=== PATIENT | female | born 1975 | race Caucasian/White ===

== ENCOUNTER 2018-04-02 15:10 | Outpatient (CLI) | payer BC, SELFPAY ==
--- NOTE | 2018-04-02 14:39 | DI.RAD_ITS ---
SYMPTOMS/DIAGNOSIS: RIGHT KNEE PAIN, M25.569 RIGHT KNEE: No bony or joint abnormality is seen.
== END 2018-04-02 15:30 ==
PROVIDERS: PCP Family Medicine; Visit Provider Nurse Practitioner Family
DX: M25.561 Pain in right knee (principal)
CPT/HCPCS: 73562

== ENCOUNTER 2018-05-10 10:10 | Outpatient (REF) | payer SELFPAY ==
--- NOTE | 2018-05-10 08:30 | PAPFT_PTH ---
PATIENT: Dede Morse LOC: [facility] U#:[id number] AGE/SX: 43/F ROOM: RE05/10/[address]: Lauren Donato : 1975 BED: DIS: 05/10/2018 SPEC #: [id number] RECD: 05/10/18 12:40 STATUS: MIKAEL REQ #: [id number] DEBORAH: 05/10/18 08:[address]: Lauren Donato DEPT: [facility] Cytology RECD BY: Josephine Kingston Tissues: 1 - CX/ENDOCX FOR PAP SMEARS Procedures: PAP THIN PREP/[facility] Screening HPV DNA PROBE Comments: [id number]
[2018-05-10 14:53] LABS: TSH (W/Ref FT4) 0.69 uIU/mL (0.358-3.74)
== END 2018-05-10 10:30 ==
LOC: NCHCN 10:10
PROVIDERS: PCP Family Medicine; Visit Provider Family Medicine
DX: E03.9 Hypothyroidism, unspecified (principal); Z00.00 Encounter for general adult medical examination without abnormal findings; Z12.4 Encounter for screening for malignant neoplasm of cervix; Z11.51 Encounter for screening for human papillomavirus (HPV)
CPT/HCPCS: 88142; 84443; 87624

== ENCOUNTER 2018-09-13 12:18 | Outpatient (REF) | payer BC, SELFPAY ==
[2018-09-13 18:25] LABS: Anion Gap 8.1 mmol/L (3-11); BUN 16 mg/dL (7-18); CO2 30.9 mmol/L (21.0-32.0); CREATININE 0.72 mg/dL (0.55-1.02); Calcium 9.1 mg/dL (8.5-10.1); Chloride 103 mmol/L (98-107); Glucose 134 mg/dL (70-100); Potassium 4.3 mmol/L (3.5-5.1); Sodium 142 mmol/L (136-145); TSH (W/Ref FT4) 0.53 uIU/mL (0.358-3.74)
[2018-09-13 18:39] LABS: COMMENT (LAB VIEW ONLY) 71.84 mg/dL; Microalb ug/mg Crea 128.1 ug/mg Cr
== END 2018-09-13 12:38 ==
LOC: NCHCN 12:18
PROVIDERS: PCP Family Medicine; Visit Provider Family Medicine
DX: E11.9 Type 2 diabetes mellitus without complications (principal); I10 Essential (primary) hypertension; E03.9 Hypothyroidism, unspecified
CPT/HCPCS: 80048; 82043; 82570; 84443

== ENCOUNTER 2018-11-01 00:38 | Outpatient (CLI) | payer BC, SELFPAY ==
--- NOTE | 2018-11-01 09:33 | DI.MRI_ITS ---
SYMPTOM/DIAGNOSIS: RT KNEE PAIN, RT INTERNAL DERANGEMENT RIGHT KNEE MRI: MR examination of the knee was performed according to the usual protocol. No significant bony signal abnormality is seen. Grade II chondromalacia patellae noted. No other abnormality of the extensor mechanism. Cruciate ligaments appear intact. Lateral meniscus is unremarkable. There is an inferior surfacing nondisplaced tear of the posterior horn of the medial meniscus. Articular cartilage of the joints of the knee grossly intact except for the aforementioned patellar cartilage changes. CONCLUSION: Medial meniscal tear, nondisplaced. Grade II chondromalacia patellae.
== END 2018-11-01 00:58 ==
PROVIDERS: PCP Family Medicine; Visit Provider Student in an Organized Health Care Education/Training Program
DX: M25.561 Pain in right knee (principal); M23.91 Unspecified internal derangement of right knee; S83.241A Other tear of medial meniscus, current injury, right knee, initial encounter; M22.41 Chondromalacia patellae, right knee
CPT/HCPCS: 73721

== ENCOUNTER 2019-07-11 09:52 | Outpatient (REF) | payer BC, SELFPAY ==
[2019-07-11 12:39] LABS: Abs Immature Grans 0.02 k/cumm (0.0-0.09); Absolute Basophil Count 0.05 k/cumm (0.0-0.2); Absolute Eosinophil Count 0.11 k/cumm (0.0-0.7); Absolute Lymphocyte Count 1.33 k/cumm (1.2-3.4); Absolute Monocyte Count 0.36 k/cumm (0.11-0.7); Absolute Neutrophil Count 4.08 k/cumm (1.2-6.7); Basophils % 0.8; Eosinophils % 1.8; HCT 43.1 % (36.0-46.0); HGB 14.4 g/dL (12.0-15.5); Immature Grans % 0.3; Lymphocytes % 22.4; Mean Corp. HGB Concentration 33.4 g/dL (32.0-36.0); Mean Corpuscular Hemoglobin 29.8 pg (27.0-33.0); Mean Platelet Volume 11.8 fL (8.0-11.0); Monocytes % 6.1; Neutrophils % 68.6; Platelet Count 243 x1000/uL (130-400); RBC 4.84 m/cumm (4.00-5.20); RBC Distribution Width 12.9 % (11.7-14.6); White Blood Cell Count 5.95 k/cumm (4.4-10.8)
[2019-07-11 12:56] LABS: Anion Gap 10.3 mmol/L (3-11); BUN 14 mg/dL (7-18); CO2 26.7 mmol/L (21.0-32.0); CREATININE 0.63 mg/dL (0.55-1.02); Calcium 9.2 mg/dL (8.5-10.1); Chloride 104 mmol/L (98-107); Glucose 172 mg/dL (74-106); Potassium 4.6 mmol/L (3.5-5.1); Sodium 141 mmol/L (136-145); TSH (W/Ref FT4) 0.71 uIU/mL (0.36-3.74)
[2019-07-14 09:57] LABS: Cyclic Citrullinated Peptide <2.5 U/mL (<5.0)
[2019-07-14 12:04] LABS: ANA Interpretation Positive (Negative); ANA Titer Pattern 1:320 Homogeneous
== END 2019-07-11 10:12 ==
LOC: NCHCN 09:52
PROVIDERS: PCP Family Medicine; Visit Provider Family Medicine
DX: R53.83 Other fatigue (principal); E11.9 Type 2 diabetes mellitus without complications; E03.9 Hypothyroidism, unspecified; M25.50 Pain in unspecified joint
CPT/HCPCS: 80048; 85652; 86200; 84443; 85025; 86038

== ENCOUNTER 2019-09-17 12:57 | Outpatient (REF) | payer BC, SELFPAY ==
[2019-09-17 20:39] LABS: HCT 41.8 % (36.0-46.0); Mean Corp. HGB Concentration 33.5 g/dL (32.0-36.0); Mean Corpuscular Volume 89.7 fL (80-95); Mean Platelet Volume 11.7 fL (8.0-11.0); Platelet Count 301 x1000/uL (130-400); RBC 4.66 m/cumm (4.00-5.20); RBC Distribution Width 13.2 % (11.7-14.6); White Blood Cell Count 7.31 k/cumm (4.4-10.8)
[2019-09-17 21:18] LABS: ESR 9 mm/hr (0-20)
== END 2019-09-17 13:17 ==
LOC: NCHCN 12:57
PROVIDERS: PCP Family Medicine; Visit Provider Nurse Practitioner Family
DX: R19.7 Diarrhea, unspecified (principal)
CPT/HCPCS: 80048; 85027; 85652

== ENCOUNTER 2019-12-09 11:36 | Outpatient (CLI) | payer BC, SELFPAY ==
--- NOTE | 2019-12-09 12:00 | DI.RAD_ITS ---
EXAM: XR HIP LT COMPLETE AP PELVIS INDICATION: PAIN IN LT THIGH. TECHNIQUE: 2D digital imaging was performed. FINDINGS: No fracture or dislocation is seen. The joint spaces are well maintained. No joint space calcifica tions are seen. There is minimal spurring at the greater trochanters. IMPRESSION: Minimal degenerative changes. No acute abnormality. DATA REPOSITORY: RADIATION DOSE DELIVERED:
== END 2019-12-09 11:56 ==
PROVIDERS: PCP Family Medicine; Visit Provider Nurse Practitioner Family
DX: M79.652 Pain in left thigh (principal)
CPT/HCPCS: 73502

== ENCOUNTER 2019-12-26 13:36 | Outpatient (REF) | payer BC, SELFPAY ==
[2019-12-26 17:08] LABS: COMMENT (LAB VIEW ONLY) 28.85 mg/dL; Microalb ug/mg Crea 98.4 ug/mg Cr
== END 2019-12-26 13:56 ==
LOC: NCHCN 13:36
PROVIDERS: PCP Family Medicine; Visit Provider Family Medicine
DX: E11.9 Type 2 diabetes mellitus without complications (principal)
CPT/HCPCS: 82043; 82570

== ENCOUNTER 2020-02-10 08:48 | Outpatient (CLI) | payer BC, SELFPAY ==
--- NOTE | 2020-02-10 | DI.US_ITS ---
EXAM: US AXILLA LT CLINICAL HISTORY: LUMP LT ARM PIT, R22.30 TECHNIQUE: Ultrasound left axilla performed using standard protocol. COMPARISON: No exams were available for comparison FINDINGS: There is a lymph node measuring 2.5 x 1.1 by 1.4 cm in the left axilla. The fatty hilum is maintaine d. There is a thin rim of hypoechoic cortex. Are no malignant features however malignancy cannot be excluded. No additional findings are seen. IMPRESSION: 2.5 centimeter left axillary lymph node without suspicious features. DATA REPOSITORY:
== END 2020-02-10 09:08 ==
PROVIDERS: PCP Family Medicine; Visit Provider Nurse Practitioner Family
DX: R22.30 Localized swelling, mass and lump, unspecified upper limb (principal); R59.0 Localized enlarged lymph nodes
CPT/HCPCS: 76642

== ENCOUNTER 2020-02-27 13:58 | Outpatient (CLI) | payer BC, SELFPAY ==
--- NOTE | 2020-02-27 13:01 | DI.US_ITS ---
EXAM: US AXILLA LT CLINICAL HISTORY: LOCALIZED SWELLING UNDER ARM,R22.30 TECHNIQUE: Ultrasound left axilla performed using standard protocol. COMPARISON: US US AXILLA LT from 02/10/2020 FINDINGS: There is a 2.8 x 1.1 x 2.4 cm ovoid hypoechoic lesion in the left axilla. Sonographically, it is con sistent with a lymph node. No suspicious cystic or solid masses are seen in the left axilla. IMPRESSION: No sonographically suspicious finding. DATA REPOSITORY:
== END 2020-02-27 14:18 ==
PROVIDERS: PCP Family Medicine; Visit Provider Nurse Practitioner Family
DX: R22.32 Localized swelling, mass and lump, left upper limb (principal)
CPT/HCPCS: 76642

== ENCOUNTER 2020-04-01 19:18 | Outpatient (REF) | payer BC, SELFPAY ==
[2020-04-01 19:25] LABS: Anion Gap 11.8 mmol/L (3-11); BUN 9 mg/dL (7-18); CO2 25.2 mmol/L (21.0-32.0); CREATININE 0.78 mg/dL (0.55-1.02); Calcium 8.8 mg/dL (8.5-10.1); Chloride 103 mmol/L (98-107); Glucose 128 mg/dL (74-106); Potassium 3.7 mmol/L (3.5-5.1); Sodium 140 mmol/L (136-145)
[2020-04-01 19:32] LABS: Abs Immature Grans 0.02 10^3/uL (0.0-0.06); Absolute Basophil Count 0.08 10^3/uL (0.0-0.2); Absolute Lymphocyte Count 1.64 10^3/uL (1.2-3.4); Absolute Monocyte Count 0.62 10^3/uL (0.1-0.8); Absolute Neutrophil Count 5.28 10^3/uL (1.2-6.7); Eosinophils % 3.8; HCT 41.4 % (36.0-46.0); HGB 13.8 g/dL (11.2-15.7); Immature Grans % 0.3; Lymphocytes % 20.7; MCH 29.9 pg (27.0-33.0); MCHC 33.3 % (32.0-36.0); MCV 89.8 fL (80-95); MPV 12.6 fL (8.0-11.0); Monocytes % 7.8; Neutrophils % 66.4; Nucleated RBC 0 %; Platelet Count 245 10^3/uL (130-400); RBC 4.61 10^6/uL (3.93-5.22); RDW 13.2 % (11.7-14.6); RDW-SD 42.8 fL; WBC 7.94 10^3/uL (4.4-10.8)
[2020-04-04 22:35] LABS: Patient Race White; SARS-CoV-2 RNA Undetected (Undetected); SARS-CoV-2 Specimen Source Nasal
[2020-04-07 15:05] LABS: IgA 326 mg/dL (85-499); Interpretation (See Note); Tissue Transglutaminase IgA <1.2 U/mL (<4.0)
== END 2020-04-01 19:38 ==
LOC: NCHCN 19:18
PROVIDERS: PCP Family Medicine; Visit Provider Nurse Practitioner Family
DX: R19.7 Diarrhea, unspecified (principal); Z11.59 Encounter for screening for other viral diseases
CPT/HCPCS: 80048; 82784; 83516; U0003; 85025

== ENCOUNTER 2020-04-09 03:59 | Outpatient (CLI) | payer BC, SELFPAY ==
--- NOTE | 2020-04-09 07:30 | DI.US_ITS ---
EXAM: US PELVIS TRANSVAGINAL CLINICAL HISTORY: menorrhagia, abdominal bloating, pelvic pain,R14.0,R10.2,N92.0. TECHNIQUE: Transabdominal and transvaginal pelvic ultrasound was performed using standard protocol. COMPARISON: No exams were available for comparison FINDINGS: KIDNEYS: Kidneys are symmetric in size. No evidence of renal calculi. No evidence of hydronephrosis. No renal mass or cyst identified. UTERUS: Position: Anteverted. Size: 9.5 long by 3.6 AP by 5.1 transverse cm Endometrium: 0.3 cm. Normal for patient's menstrual status. Myometrium: Unremarkable. Cervix: Unremarkable. OVARIES: Right: 3.8 x 2.3 x 1.8 cm Cyst or mass: Follicular cysts. The largest measures 3 cm. Left: 2.7 x 2.1 x 1.4 cm Cyst or mass: Echogenic shadowing focus measuring 0.6 x 0.4 cm in the left ovary. This may represent a dermoid. Follow-up as clinically appropriate. DOPPLER: Color: Symmetric and uniform flow to both ovaries. No hyperemia. CUL-DE-SAC: Free fluid: None. Other: None. IMPRESSION: 1. Normal sonographic appearance of the kidneys. 2. Normal-appearing uterus with endometrial stripe within normal limits. 3. 0.6 x 0.4 cm echogenic focus in the left ovary. This may represent a lesion such as a dermoid. F ollow-up as clinically appropriate. DATA REPOSITORY:
== END 2020-04-09 04:19 ==
PROVIDERS: PCP Family Medicine; Visit Provider Obstetrics & Gynecology Gynecology
DX: N92.0 Excessive and frequent menstruation with regular cycle (principal); R14.0 Abdominal distension (gaseous); R10.2 Pelvic and perineal pain
CPT/HCPCS: 76830; 76856

== ENCOUNTER 2020-06-18 03:37 | Outpatient (CLI) | payer BC, SELFPAY ==
--- NOTE | 2020-06-18 08:00 | DI.US_ITS ---
EXAM: US PELVIS TRANSVAGINAL CLINICAL HISTORY: f/u cyst on L ovary,PELVIC PAIN,R10.2,N83.209 TECHNIQUE: Transabdominal and transvaginal imaging was performed using standard protocol. COMPARISON: CT ABD PELVIS WITH CONTRAST from 11/12/2014 US US PELVIS TRANSVAGINAL from 04/09/2020 FINDINGS: KIDNEYS: Kidneys are symmetric in size. No evidence of renal calculi. No evidence of hydronephrosis. No renal mass or cyst identified. UTERUS: Retroverted 8.1 x 4.4 x 5.1 cm. Endometrium: 9 millimeters Myometrium: Unremarkable. Cervix: Unremarkable. OVARIES: Right: Cyst or mass: Small follicle Left: Cyst or mass: 3.1 x 2.4 x 0.9 centimeter cystic area with mild internal echoes. 4.4 x 2.7 x 2.8 centimeter complex cyst with internal echoes. This appears new when compared with the previous exam. The previously noted calcification in or adjacent to the left ovary is not visualized on today's exa m. It is visible on previous CT from 2014 and is likely benign. DOPPLER: Color: Symmetric and uniform flow to both ovaries. No hyperemia. Duplex: Normal ovarian arterial waveforms visualized. CUL-DE-SAC: Free fluid: Trace IMPRESSION: 1. Normal-appearing uterus with endometrial stripe within normal limits. 2. Resolution of previously noted right ovarian cyst. There is a new 4.4 centimeter complex cyst with internal echoes as well as new or increased in size adjacent cyst. DATA REPOSITORY:
== END 2020-06-18 03:57 ==
PROVIDERS: PCP Family Medicine; Visit Provider Obstetrics & Gynecology Gynecology
DX: N83.292 Other ovarian cyst, left side (principal); R10.2 Pelvic and perineal pain
CPT/HCPCS: 76830; 76856

== ENCOUNTER 2020-09-10 11:23 | Outpatient (REF) | payer BC, SELFPAY ==
[2020-09-10 15:10] LABS: HCT 43.8 % (36.0-46.0); HGB 14.3 g/dL (11.2-15.7); MCH 30.2 pg (27.0-33.0); MCHC 32.6 % (32.0-36.0); MCV 92.4 fL (80-95); Platelet Count 252 10^3/uL (130-400); RBC 4.74 10^6/uL (3.93-5.22); RDW 12.8 % (11.7-14.6); WBC 6.66 10^3/uL (4.4-10.8)
[2020-09-10 15:35] LABS: ALT 23 U/L (14-59); AST 12 U/L (15-37); Alkaline Phosphatase 51 U/L (46-116); BUN 17 mg/dL (7-18); Bilirubin, Total 0.3 mg/dL (0.2-1.0); CREATININE 0.7 mg/dL (0.55-1.02); Calcium 9.1 mg/dL (8.5-10.1); Calculated LDL 93 mg/dL (<100); Chloride 103 mmol/L (98-107); Cholesterol 164 mg/dL (<200); Glucose 178 mg/dL (74-106); HDL Cholesterol 63 mg/dL (40-60); Potassium 3.9 mmol/L (3.5-5.1); Sodium 137 mmol/L (136-145); TSH (W/Ref FT4) 0.76 uIU/mL (0.36-3.74); Total Protein 7.4 g/dL (6.4-8.2); Triglyceride 44 mg/dL (<150)
== END 2020-09-10 11:24 | disposition home or self-care (01) ==
LOC: NCHCN 11:23
PROVIDERS: PCP Family Medicine; Visit Provider Family Medicine
DX: E11.9 Type 2 diabetes mellitus without complications (principal); I10 Essential (primary) hypertension; E03.9 Hypothyroidism, unspecified
CPT/HCPCS: 80053; 80061; 85027; 84443

== ENCOUNTER 2021-01-03 11:18 | Outpatient (REF) | payer BC, SELFPAY | END 2021-01-03 11:19 | disposition home or self-care (01) | LOC: NCHCN 11:18 | PROVIDERS: PCP Family Medicine; Visit Provider Family Medicine | DX: E11.9 Type 2 diabetes mellitus without complications (principal) | CPT/HCPCS: 82043; 82570 ==

== ENCOUNTER 2022-06-01 09:04 | Day surgery (SDC) | payer BC, SELFPAY ==
--- NOTE | 2022-05-31 16:07 | PDOC.DSDIS_ITS ---
Date of service: 06/01/22 Time of Service: 11:56 Discharge Plan Disposition Patient Disposition: HOME Condition: Good Condition: Good Discharge Details Attending Provider: Jose Romero Primary Care Provider: Lauren Donato Home Meds and New Rx's Prescriptions: Continued atorvastatin [Lipitor] 10 MG tablet 10 mg PO DAILY glipizide 10 MG tablet extended release 24hr 10 mg PO DAILY lisinopril 5 MG tablet 5 mg PO DAILY levothyroxine [Synthroid] 50 mcg tablet 50 mcg PO DAILY ibuprofen 800 mg tablet 800 mg PO TID PRN meclizine 25 mg tablet 25 mg PO DAILY PRN metformin 1,000 mg tablet extended release 24hr 1,000 mg PO BID albuterol sulfate [ProAir HFA] 8.5 GM HFA aerosol inhaler 2 puff Inhalation PRN PRN Label Comments: 03/27/16 2 puffs by mouth prior ro exercise as needed. [facility] [place] Discontinued bisacodyl [Dulcolax (bisacodyl)] 5 mg tablet,delayed release (DR/EC) 5 mg PO ONCE Qty: 4 0RF Rx Instructions: Take according to provider's instructions for colonoscopy prep. polyethylene glycol 3350 17 gram/dose powder 17 g PO ONCE Qty: 238 0RF Rx Instructions: To be taken as directed by prescriber's office for colonoscopy prep. No Action rizatriptan 10 mg tablet 1 tab PO DAILY Label Comments: TAKE 1 TABLET BY MOUTH AT FIRST ONSET OF HEADACHE MAY REPEAT IN 2 HOURS DO NOT EXCEED 2 TABLETS IN 24 HOURS omeprazole 40 mg capsule,delayed release(DR/EC) 1 cap PO DAILY Label Comments: TAKE ONE CAPSULE BY MOUTH EVERY DAY Discharge Instructions Additional Instructions: 1. If tolerated, consume a soft, low fiber diet for 1-2 days. 2[address] Do not drive, drink alcohol, operate machinery, make critical decisions, or do activities that require coordination or balance for 24 hours. 3. Because air was put into your colon during the procedure, expelling air from your rectum (passing gas or farting) is normal. 4. You may not have a bowel movement for 1-3 days because of the colonoscopy prep. This is normal. 5. Go directly to the emergency room if you notice any of the following: Develop chills (warm to touch), or if you have a thermometer and your temperature is above 101 Difficulty breathing or difficultly swallowing Persistent vomiting Severe abdominal pain, other than gas cramps Severe chest pain Black, tarry stools Any bleeding ? exceeding one tablespoon 6. Call your physician if the site where your intravenous was started becomes red, swollen, painful, and warm to touch. 7. Your physician has reviewed your pre-procedure medications. Please continue to take those medications as previously ordered. You will be given specific information/education regarding any changes to your medications before leaving. Activity:: Activity as Tolerated Diet:: As Tolerated DS: Diagnosis Discharge Diagnosis (1) Screening for colon cancer: Status: Acute Asessment and Plan: Normal colonoscopy, follow-up for your next 1 in 10 years.
--- NOTE | 2022-05-31 16:09 | W.COLOREPORT ---
Date of service: 06/01/22 Time of Service: 11:57 Colonoscopy Report Date of procedure: 06/01/22 Pre-op diagnosis general: Screening colonoscopy for routine health maintenance Post-op diagnosis procedure note: same Procedure: Screening colonoscopy Surgeon: Jose Romero Anesthesia Type: General:No Airway Estimated blood loss (mL): 0 Pathology: none sent Complications: None Disposition: same day Indications: Dede is a 47-year-old woman here for her first screening colonoscopy. Prep: Miralax/Dulcolax Procedure Start Time: 11:27 Procedure End Time: 11:50 Retraction Time: 18 Findings: Normal colonoscopy Procedure Description: After the induction of monitored anesthetic care, and with the patient in left lateral decubitus position, I began by performing an external anorectal exam.? Perineum and skin were normal, as was the anal verge.? There was no not evidence of external hemorrhoids.? Next, I performed a digital rectal exam.? I did appreciate any abnormal findings.? Next, I advanced a colonoscope into the rectal vault.? I performed retroflexion.? Using insufflation, I then advanced the colonoscope beyond the rectal folds and into the sigmoid colon before advancing towards the cecum.? The quality of the prep was adequate.? The scope was noted to be in the cecum by identification of the ileocecal valve and appendiceal orifice.? I then began withdrawing the colonoscope using repeated irrigation as necessary for full evaluation of the colonic mucosa. ?Once the scope was withdrawn to the level of the rectum, great care was taken to examine portions of the rectal folds.? Finally, the scope was withdrawn and the patient was brought to the same-day surgery recovery unit as the anesthetic wore off. ?The findings and instructions were shared with the patient prior to discharge.
[2022-06-01 10:00] VITALS: BP 131/84; PULSE 58; RESP 16; TEMP 35.9; O2SAT 98
[2022-06-01] MEDS: Lactated Ringers 1,000 ML 80 ML IV (10:20)
--- NOTE | 2022-06-01 10:29 | W.ANESPRE ---
General Info Date of Service Date Performed: 06/01/22 Height: 5 ft 3 in Weight: 70.2 kg Body Mass Index (BMI): 27.3 Surgical Procedure: Operation Date: 06/01/22 10:35 Proposed Procedure Side Surgeon félix Romero MD Meds Allergies and Home Medications Allergies Allergy/AdvReac Type Severity Reaction Status Date / Time No Known Allergies Allergy Unverified 06/01/22 09:56 Home Medication Medication Instructions Recorded atorvastatin 10 mg tablet (Lipitor) 10 mg PO DAILY 04/03/14 glipizide 10 mg tablet, extended 10 mg PO DAILY 04/03/14 release 24 hr lisinopril 5 mg tablet 5 mg PO DAILY 04/03/14 albuterol sulfate 90 mcg/actuation 2 puff inhalation PRN PRN 03/27/16 aerosol inhaler (ProAir HFA) levothyroxine 50 mcg tablet 50 mcg PO DAILY 01/01/20 (Synthroid) ibuprofen 800 mg tablet 800 mg PO TID PRN 02/10/20 meclizine 25 mg tablet 25 mg PO DAILY PRN 05/11/22 metformin 1,000 mg tablet,extended 1,000 mg PO BID 05/11/22 release 24hr omeprazole 40 mg capsule,delayed 1 cap PO DAILY 06/01/22 release rizatriptan 10 mg tablet 1 tab PO DAILY 06/01/22 Current Visit Medications: Current Medications Generic Name Dose Route Start Last Admin Trade Name Freq PRN Reason Stop Dose Admin Hyoscyamine Sulfate 0.125 mg 06/01/22 09:04 Hyoscyamine 0.125 Mg Sl/Oral/Chew SL DIRECTED PRN Ringer's Solution 1,000 mls @ 80 mls/hr 06/01/22 06:00 06/01/22 10:20 IV 06/30/22 23:59 80 mls/hr INFUSION LEXIS Administration IV Miscellaneous Supplies 1 each 06/01/22 06:00 Iv Access IV 06/30/22 23:59 DIRECTED LEXIS Ondansetron HCl 4 mg 06/01/22 09:04 Ondansetron 4 Mg/2 Ml Vial IVP Q4H PRN PRN Nausea / Vomiting Sodium Chloride 0 ml 06/01/22 06:00 Normal Saline Flush 10 Ml Syr IV 06/30/22 23:59 PRN PRN Sodium Chloride 0 ml 06/01/22 06:00 Normal Saline 10 Ml Vial IJ 06/30/22 23:59 DIRECTED PRN Sterile Water 0 ml 06/01/22 06:00 Water,Injection,Sterile 10 Ml Vial IJ 06/30/22 23:59 DIRECTED PRN PFSH Active Problems Active Problems: Problem Status Onset Code Diabetes E11.9 History of IBS Z87.19 Screening for colon cancer Z12.11 Medical History Medical History Abdominal bloating Arm pain, left Asthma Bilateral carpal tunnel syndrome Cubital tunnel syndrome on left Cystocele Diarrhea GERD (gastroesophageal reflux disease) Globus sensation Headache Hyperlipidemia Hypertension Hypothyroidism Intermittent asthma Internal derangement of right knee Knee pain, right Left carpal tunnel syndrome Menorrhagia Microalbuminuria Pelvic pain Sacroiliac joint pain Sciatica of right side Shoulder joint pain Tear of medial meniscus of right knee Vertigo Medical History Comments:: Brother had allergic reaction to propofol; but had it since without issue. Surgical History Surgical History History of section History of colonoscopy Tobacco Smoking/Tobacco Use Status: Current every day Tobacco Type: e-cigarettes Smokeless tobacco user: other Alcohol Alcohol Intake: never Substance Use Substance use: Never Substance use type: does not use Prental History History 3 Para 3 Hx # Term Pregnancies 3 Multiple births Hx # Pregnancies Ectopic pregnancies AB induced Hx Number of Living Children 3 AB spontaneous Vital Signs and Lab Results Vital Signs Most Recent Vital Signs in EMR: Most Recent Vital Signs Temp Pulse Resp BP Pulse Ox 35.9 C L 58 L 16 131/84 98 06/01/22 10:00 06/01/22 10:00 06/01/22 10:00 06/01/22 10:00 06/01/22 10:00 Point of Care Results Point of Care Results: POC- Test(urine) Negative 06/01/22 09:24 Lab Results Blood Type / Crossmatch: No Data to Display Complete Blood Count: No Data to Display Complete Metabolic Panel: No Data to Display Liver Function Panel: No Data to Display Coagulation Panel: No Data to Display Cardiac Panel: No Data to Display Arterial Blood Gas: No Data to Display Venous Blood Gas: No Data to Display Pancreas Panel: No Data to Display Thyroid Panel: No Data to Display Infectious Disease: No Data to Display Blood Cultures: No Data to Display Toxicology Panel: No Data to Display Panel: No Data to Display Anesthesia Assessment and Plan Anesthesia History Personal History: No History of Anesthesia Complications Family History: Other Exercise Tolerance Exercise Tolerance: Metabolic Equivalents>4 Pertinent Negatives Pertinent Negatives: No Symptoms of GERD Cardiac & Pulmonary Exam Cardiac Exam: Normal S1/S2 Heart Sounds Pulmonary Exam: Clear Bilateral Breath Sounds Implantable Cardiac Device Does patient have a Pacemaker or an ICD?: No Airway Exam Known Difficult Airway: No Mallampati Class: 2 Mouth Opening: Normal (> 3cm) Thyromental Distance: Greater than 3 cm Neck Range of Motion: Full ROM Neck Circumference: Normal Teeth Condition: Normal Dentition ASA Classification ASA Score: ASA 2 Emergency Case?: No NPO Status NPO Status: NPO Clears >2 hours, Solids >8 hours Status Status: Negative HCG Anesthesia Plan Resuscitation Status: Full Code Anesthesia Technique: General Anesthesia Airway Planned: Natural Airway Monitors Used: Standard Monitors
[2022-06-01 11:12] VITALS: BMI 27.3
[2022-06-01 12:02] VITALS: BP 109/64; PULSE 51; RESP 16; TEMP 36.4; O2SAT 97
--- NOTE | 2022-06-01 12:07 | W.ANESPOSTOP ---
Postoperative Evaluation Date, Time and Location Date Performed: 06/01/22 Time Performed: 11:50 Patient Location: Day Surgery Unit Vital Signs Most Recent Imported Vital Signs: Most Recent Vital Signs Temp Pulse Resp BP Pulse Ox 35.9 C L 58 L 16 131/84 98 06/01/22 10:00 06/01/22 10:00 06/01/22 10:00 06/01/22 10:00 06/01/22 10:00 Most Recent Manually Entered Vital Signs: Adult Blood Pressure: 109/64 Heart Rate: 51 Respirations: 16 Oxygen Saturation (%): 97 Temperature (C): 36.4 C Pain Score (0-10 Scale): 0 Pain Score Most Recent Pain Score: Most Recent Pain Score Pain Level 0 06/01/22 10:00 Assessment Mental Status: Awake (Alert & Oriented to Patient Baseline) Airway and Respiratory Function: Patent airway with normal (patient baseline) respiratory exam Cardiovascular Function: Hemodynamically Stable Hydration Status: Adequately Hydrated Nausea & Vomiting: No Nausea or Vomiting Pain: Pt. Denies Any Pain Peripheral Nerve Block: Patient did not receive a nerve block
[2022-06-01 12:32] VITALS: BP 128/75; PULSE 48; RESP 16; TEMP 36.3; O2SAT 98
[2022-06-01 12:40] VITALS: BP 109/64; PULSE 51; RESP 16; TEMPC 36.4; O2SAT 97
== END 2022-06-01 12:44 | disposition home or self-care (01) ==
PROVIDERS: PCP Family Medicine; Visit Provider Surgery
PROC: 0DJD8ZZ Inspection of Lower Intestinal Tract, Via Natural or Artificial Opening Endoscopic (ICD-10-PCS; CPT 45378; principal; 2022-06-01 10:30)
DX: Z12.11 Encounter for screening for malignant neoplasm of colon (principal)
CPT/HCPCS: 45378; 81025

== ENCOUNTER 2022-08-28 15:02 | Outpatient (REF) | payer BC, SELFPAY ==
[2022-08-28 19:17] LABS: Anion Gap 10.5 mmol/L (3-11); BUN 10 mg/dL (7-18); CO2 25.5 mmol/L (21.0-32.0); CREATININE 0.7 mg/dL (0.55-1.02); Calcium 8.6 mg/dL (8.5-10.1); Chloride 106 mmol/L (98-107); Estimated GFR 106.62 (mL/min/1.73m2); Glucose 117 mg/dL (74-106); Potassium 3.9 mmol/L (3.5-5.1); Sodium 142 mmol/L (136-145); TSH (W/Ref FT4) 0.86 uIU/mL (0.36-3.74)
[2022-08-28 19:22] LABS: COMMENT (LAB VIEW ONLY) 56.41 mg/dL; Microalb ug/mg Crea 78.5 ug/mg Cr
== END 2022-08-28 15:03 | disposition home or self-care (01) ==
LOC: NCHCN 15:02
PROVIDERS: PCP Family Medicine; Visit Provider Family Medicine
DX: I10 Essential (primary) hypertension (principal); E03.9 Hypothyroidism, unspecified; E11.9 Type 2 diabetes mellitus without complications
CPT/HCPCS: 80048; 82043; 82570; 84443

== ENCOUNTER 2022-09-21 08:12 | Outpatient (RCR) | payer BC, SELFPAY ==
--- NOTE | 2022-09-21 08:15 | HOLTER_ITS ---
APPROVED REPORT Conclusion This is a 48-hour Holter monitor ordered for bigeminy Rhythm throughout was sinus with an average heart rate of 69. Minimum was 54, maximum 127 There were occasional ventricular ectopic beats which comprised 1.4% of total. Periods of bigeminy w ere noted. There were no couplets or ventricular tachycardia There were rare atrial premature beats There was no atrial fibrillation, no high-grade AV block, no SVT, no pauses greater than 3 seconds
== END 2022-10-13 23:59 | disposition home or self-care (01) ==
LOC: CARDOPNVT 08:12
PROVIDERS: PCP Family Medicine; Visit Provider Family Medicine
DX: I49.8 Other specified cardiac arrhythmias (principal)
CPT/HCPCS: 93225; 93226

== ENCOUNTER 2022-11-11 15:04 | Emergency (ER) | payer BC, SELFPAY ==
[2022-11-11 15:07] VITALS: BP 134/73; PULSE 92; RESP 16; TEMP 37.1; O2SAT 97
--- NOTE | 2022-11-11 15:44 | ED.GENADUL_ITS ---
Discharge Plan Disposition Patient Disposition: Home Discharge Details Clinical Impression: Pyelonephritis, Nausea & vomiting Primary Care Provider: Lauren Donato ED Provider: Leticia Kwong Home Meds and New Rx's Prescriptions: New cephalexin 500 mg tablet 500 mg PO BID 10 Days Qty: 20 0RF Rx Instructions: Take 1 tablet by mouth twice daily for the next 10 days Continued atorvastatin [Lipitor] 10 MG tablet 10 mg PO DAILY glipizide 10 MG tablet extended release 24hr 10 mg PO DAILY lisinopril 5 MG tablet 5 mg PO DAILY levothyroxine [Synthroid] 50 mcg tablet 50 mcg PO DAILY ibuprofen 800 mg tablet 800 mg PO TID PRN meclizine 25 mg tablet 25 mg PO DAILY PRN metformin 1,000 mg tablet extended release 24hr 1,000 mg PO BID albuterol sulfate [ProAir HFA] 8.5 GM HFA aerosol inhaler 2 puff Inhalation PRN PRN Patient Comments: 03/27/16 2 puffs by mouth prior ro exercise as needed. [facility] [place] Ozempic 0.25 mg or 0.5 mg(2 mg/1.5 mL) pen injector 0.5 mg SUBCUT QWEEK Patient Comments: INJECT 0.5MG UNDER THE SKIN ONCE A WEEK rizatriptan 10 mg tablet 1 tab PO DAILY Patient Comments: TAKE 1 TABLET BY MOUTH AT FIRST ONSET OF HEADACHE MAY REPEAT IN 2 HOURS DO NOT EXCEED 2 TABLETS IN 24 HOURS omeprazole 40 mg capsule,delayed release(DR/EC) 1 cap PO DAILY Patient Comments: TAKE ONE CAPSULE BY MOUTH EVERY DAY Discharge Instructions Instructions: Urinary Tract Infection in Women (ED), Acute Nausea and Vomiting (ED) Additional Instructions: Evidence shows that you have a kidney infection. This may be what was causing you to have nausea vomiting. Please take the medications as directed. Take the antibiotic with yogurt or probiotic. Please return to the ER if you continue to have nausea vomiting and and are unable to hold down the antibiotic. Take the nausea medication 20 to 30 minutes before taking the antibiotic medication or eating or drinking anything. Follow up with primary care provider in 3-5 days. Return to ED sooner if any worsening or concerns. Increase oral fluids. Please take Tylenol or Ibuprofen with food every 4-6 hours as needed for pain and swelling. Referrals: Lauren Donato MD [Primary Care Provider] - 3 days Medical Decision Making 47-year-old female presents to the ER with a chief complaint of nausea vomiting for the last 6 days unable to keep anything down. She also reports body aches into her back and lower abdomen. She denies any fever she does endorse chills and small amount of diarrhea. She denies any sore throat or URI type symptoms. She does have a history of asthma, GERD, hypertension hyperlipidemia and C- section. Denies any other associated symptoms. Work-up ordered including CBC CMP, urinalysis, lipase. CBC shows slight elev ation of white blood cells at 11.38, potassium slightly low at 3.3 glucose 200 magnesium low at 1.5, urinalysis shows trace blood positive nitrites small leukocytes culture is pending at this time. 1 g of magnesium IV ordered, a gram of Rocephin IV. Zofran 4 mg given. A liter of normal saline. CT abdomen pelvis shows upper left pole pyelonephritis. No evidence for abscess. Discussed results with patient who verbalized understanding. Patient was given a p.o. challenge and was able to tolerate crackers and luan jyoti without emesis. She reports she is feeling much better. Patient was sent home with cephalexin p.o. 5 mg twice daily, Zofran tablets and instructions to follow-up with her PCP. Discuss strict return instructions. Patient remained hemodynamically stable and appeared improved prior to discharge. Due to patient tolerating p.o. without difficulty admission is not indicated at this time. This text was generated using 2Peer (Qlipso) dictation system, please disregard any oddities of phrase or misspellings. Imaging Data Radiologic Study: Imaging: CT Scan Radiologist's impression: IMPRESSION: Suspect left upper pole pyelonephritis. Lobar nephronia is likely. No evidence for abscess at this time. Thank you for allowing us to participate i n the care of your patient. Dictated and Authenticated by: Leanne Harden MD Lab Data Lab results reviewed: Yes I reviewed the patient's lab results. Labs: 11/11/22 16:15 Urine - Reflex from Ua Urine Culture - Pending Laboratory Tests Range/Units 11/11/22 11/11/22 11/11/22 15:53 15:53 16:15 WBC (4.4-10.8) 10^3/uL 11.38 H RBC (3.93-5.22) 10^6/uL 4.23 Hgb (11.2-15.7) g/dL 12.6 Hct (36.0-46.0) % 37.5 MCV (80-95) fL 89 MCH (27.0-33.0) pg 29.8 MCHC (32.0-36.0) % 33.6 RDW (11.7-14.6) % 12.6 Plt Count (130-400) 10^3/uL 220 MPV (8.0-11.0) fL 10.8 Immature Gran % 0.4 Neutrophils % 79.5 Lymphocytes % 10.1 Monocytes % 9.5 Eosinophils % 0.1 Basophils % 0.4 Nucleated RBC % (0.0-0.3) % 0.0 Absolute Neutrophils (1.2-6.7) 10^3/uL 9.05 H Absolute Lymphocytes (1.2-3.4) 10^3/uL 1.15 L Absolute Monocytes (0.1-0.8) 10^3/uL 1.08 H Absolute Eosinophils (0.0-0.7) 10^3/uL 0.01 Absolute Basophils (0.0-0.2) 10^3/uL 0.05 Sodium (136-145) mmol/L 140 Potassium (3.5-5.1) mmol/L 3.3 L Chloride (98-107) mmol/L 103 Carbon Dioxide (21.0-32.0) mmol/L 25.3 Anion Gap (3-11) mmol/L 11.7 H BUN (7-18) mg/dL 14 Creatinine (0.55-1.02) mg/dL 0.9 Est GFR (CKD-EPI 2020) (mL/min/1.73m2) 78.86 Glucose (74-106) mg/dL 200 H Calcium (8.5-10.1) mg/dL 9.1 Magnesium (1.8-2.4) mg/dL 1.5 L Total Bilirubin (0.2-1.0) mg/dL 0.5 AST (15-37) U/L 10 L ALT (14-59) U/L 20 Alkaline Phosphatase (46-116) U/L 66 Total Protein (6.4-8.2) g/dL 7.7 Albumin (3.4-5.0) g/dL 3.7 Lipase (16-77) U/L 33 Urine Color (Yellow) Yellow Urine Clarity (Clear) Clear Urine pH (5-8) 5.5 Ur Specific [place] (1.005-1.025) >= 1.030 H Urine Protein (Negative) mg/dL 100 H Urine Ketones (Negative) mg/dL Negative Urine Blood (Negative) Trace-intact H Urine Nitrite (Negative) Positive H Urine Bilirubin (Negative) Negative Urine Urobilinogen (Up to 0.2) mg/dL 0.2 Ur Leukocyte Esterase (Negative) Small H Urine RBC (0-2) HPF 0-2 Urine WBC (0-5) HPF 5-10 Ur Epithelial Cells (Negative) HPF Rare Urine Crystals (Negative) HPF Negative Urine Bacteria (Negative) HPF Moderate Urine Casts (Negative) LPF Negative Urine Mucus (Negative) Trace Urine Other (Negative) Rare Transitional Ur Culture Indicated? Yes Urine Glucose (Negative) mg/dL 100 H HPI General Mode of arrival: ambulatory . Date/Time Provider Initiated Documentation: 11/11/22 15:05 . Limitations to Documentation: no limitations . Information obtained by: patient, RN notes reviewed and old records reviewed . HPI Narrative: 47-year-old female presents to the ER with a chief complaint of nausea vomiting for the last 6 days unable to keep anything down. She also reports body aches into her back and lower abdomen. She denies any fever she does endorse chills and small amount of diarrhea. She denies any sore throat or URI type symptoms. She does have a history of asthma, GERD, hypertension hyperlipidemia and C- section. Denies any other associated symptoms. Related Data Home Medications Medication Instructions Recorded Confirmed atorvastatin 10 mg tablet (Lipitor) 10 mg PO DAILY 04/03/14 11/11/22 glipizide 10 mg tablet, extended 10 mg PO DAILY 04/03/14 11/11/22 release 24 hr lisinopril 5 mg tablet 5 mg PO DAILY 04/03/14 11/11/22 albuterol sulfate 90 mcg/actuation 2 puff inhalation PRN PRN 03/27/16 11/11/22 aerosol inhaler (ProAir HFA) levothyroxine 50 mcg tablet 50 mcg PO DAILY 01/01/20 11/11/22 (Synthroid) ibuprofen 800 mg tablet 800 mg PO TID PRN 02/10/20 11/11/22 meclizine 25 mg tablet 25 mg PO DAILY PRN 05/11/22 11/11/22 metformin 1,000 mg tablet,extended 1,000 mg PO BID 05/11/22 11/11/22 release 24hr omeprazole 40 mg capsule,delayed 1 cap PO DAILY 06/01/22 11/11/22 release rizatriptan 10 mg tablet 1 tab PO DAILY 06/01/22 11/11/22 cephalexin 500 mg tablet 500 mg PO BID uti 10 days #20 tabs 11/11/22 semaglutide 0.25 mg or 0.5 mg (2 0.5 mg subcut QWEEK 11/11/22 11/11/22 mg/1.5 mL) subcutaneous pen injector (Troodonempic) Previous Rx's Medication Instructions Recorded cephalexin 500 mg tablet 500 mg PO BID uti 10 days #20 tabs 11/11/22 Allergies Allergy/AdvReac Type Severity Reaction Status Date / Time No Known Allergies Allergy Unverified 11/11/22 15:11 General Stated Complaint: Nausea/Vomit/Diar SERGE: 3 Review of Systems All systems reviewed & are unremarkable except as noted in HPI and below Gastrointestinal Gastrointestinal: Reports abdominal pain, Reports nausea and Reports vomiting PFSH All Active Problems (Updated 11/11/22 @ 18:18 by Leticia Kwong NP) Pyelonephritis (Acute) Nausea & vomiting (Acute) Diabetes (Chronic) History of IBS (Acute) Screening for colon cancer (Acute) Medical History Abdominal bloating Arm pain, left Asthma Bilateral carpal tunnel syndrome Cubital tunnel syndrome on left Cystocele Diarrhea GERD (gastroesophageal reflux disease) Globus sensation Headache Hyperlipidemia Hypertension Hypothyroidism Intermittent asthma Internal derangement of right knee Knee pain, right Left carpal tunnel syndrome Menorrhagia Microalbuminuria Pelvic pain Sacroiliac joint pain Sciatica of right side Shoulder joint pain Tear of medial meniscus of right knee Vertigo Surgical History History of section History of colonoscopy Family History Sister Cancer lymphoma Father Hypertension Mother Thyroid disease Social History Smoking/Tobacco Use Status: Current every day Tobacco Type: e-cigarettes Smokeless tobacco user: other Smoking risk assessment performed?: Yes Alcohol Intake: never Drug use: Never Substance use type: does not use Household members: spouse, children and other Details: Maddison-Griffin, S-Geraldo, D-Barbie,D-[place]field Housing: house Number of Children: 3 current occupation: warehouseman, bike sales. Pets and animals: Yes Pets and animals: cat(s) and dog(s) Current gender identity: female What is your relationship status?: Panel score (0-1 are the most socially isolated patients): 1 What type of physical activity do you participate in: walking Duration: other Details: walks all day at three jobs and after work Frequency: 5-6 times per week Seatbelt use: always Do you feel safe at home: Yes Do you feel safe in your relationship?: Yes Female Reproductive History Menstrual Duration of menses: 6-7 days control method: permanent sterilization History History 3 Para 3 Hx # Term Pregnancies 3 Multiple births Hx # Pregnancies Ectopic pregnancies AB induced Hx Number of Living Children 3 AB spontaneous Exam Narrative Exam Narrative: Constitutional: Alert and oriented x3. Appears stated age. Normal body habitus. Head: Normocephalic, no trauma. Eyes: Pupils PERRL, Red reflex noted, EOM's intact. Eyelids symmetrical without lesions, discharge, or swelling. ENT: Bilateral TM's WNL, External ear normal to inspection, no mastoid TTP, swelling, or erythema, Nasal turbinates WNL, no nasal discharge. Normal dentition, Posterior pharynx WNL, no exudate. Chest: RRR, Normal S1, S2, distal pulses intact. Resp: Lungs clear to auscultation bilaterally, no wheezes, rales, or rhonchi. Abdomen: Soft, non-distended, Normoactive bowel sounds all 4 quads. Musculoskeletal: Normal gait, 5/5 strength to all four extremities. Skin: No suspicious rashes or lesions. Capillary refill less than 2 sec. Neurologic: Cranial nerves II-XII intact. Alert and oriented x 3. Motor: No deficits noted. Sensory: Intact bilaterally all 4 extremities. Reflexes: DTR's intact bilaterally.. Hematologic/Lymphatic: No ecchymosis, no lymphadenopathy. Course Vital Signs Vital signs: Vital Signs Temperature 37.1 C 11/11/22 15:07 Pulse 92 H 11/11/22 15:07 Respiratory Rate 16 11/11/22 15:07 Blood Pressure 134/73 11/11/22 15:07 Pulse Oximetry 97 11/11/22 15:07 Temperature 37.1 C 11/11/22 15:07 Temperature Source Oral 11/11/22 15:07 Pulse 92 H 11/11/22 15:07 Respiratory Rate 16 11/11/22 15:07 Respiratory Effort Normal 11/11/22 15:09 Blood Pressure 134/73 11/11/22 15:07 Blood Pressure Position Sitting 11/11/22 15:07 Pulse Oximetry 97 11/11/22 15:07 Oxygen Delivery Method Room Air 11/11/22 15:07 Oxygen Flow Rate 0 11/11/22 15:07 Pain Level 8 11/11/22 15:07
--- NOTE | 2022-11-11 15:45 | DI.CT_ITS ---
Exam(s) CT ABDOMEN PELVIS W EXAM: CT ABDOMEN PELVIS W CLINICAL HISTORY: Nausea, Vomiting TECHNIQUE: Imaging Protocol: Axial computed tomography images with coronal and sagittal reformatted images were created and reviewed CONTRAST MATERIAL: Intravenous: Omnipaque 350 Contrast volume:100 mL Oral: No COMPARISON: CT ABD PELVIS WITH CONTRAST from 11/12/2014 FINDINGS: ABDOMEN: Lung Bases: Normal where visualized. Liver: Normal density. No measurable mass. Portal, Superior Mesenteric, and Splenic Veins: Unremarkable. Gallbladder and Biliary Tract: No radiodense calculus or dilation. Pancreas: Normal density. No calcifications are seen. There is mild soft tissue stranding seen nneka cent to the tail of the pancreas and the midpole of the left kidney. Spleen: Normal. Adrenals: No masses seen. Kidneys: Normal size, contour and axis. No radiodense stones or obstructive uropathy. There is a 1.6 x 1.4 hypodense area in the midpole of the left renal cortex. This was not present on the prior exam ination. There is mild soft tissue stranding seen adjacent to the tail of the pancreas and the midpo le of the left kidney. Abdominal Aorta: Abdominal portion non-dilated. Atherosclerosis is present. Bowel: No obstruction or bowel wall thickening. No evidence of appendicitis. Peritoneal Cavity: No ascites, collection or mesenteric inflammatory response. No free air. Lymph Nodes: Within normal limits. Bones: Within normal limits for the patient's age. Soft Tissues: Unremarkable. PELVIS: Bladder: There is mild symmetric thickening of the wall of the urinary bladder. The urinary bladder is incompletely distended. Reproductive Organs: Unremarkable as visualized. Lymph Nodes: Within normal limits. Bones: Within normal limits for the patient's age. IMPRESSION: 1. 1.6 x 1.4 cm hypodense area in the midpole of the left kidney. There is adjacent soft tissue stra nding near the midpole of the left kidney and adjacent to the tail of the pancreas. This may represe nt pyelonephritis. No abscess is seen at this time. Neoplasm cannot be entirely excluded. A follow -up CT scan in 1 month is recommended to document resolution of this area in the left kidney. 2. The pancreas appears grossly unremarkable. The soft tissue stranding near the tail of the pancrea s may reflect the adjacent renal disease. Pancreatitis cannot be excluded. Please correlate with th e patient's clinical history and laboratory values. RADIATION DOSE DELIVERED: 795.89mGy.cm Total DLP DATA REPOSITORY: All CT scans at this facility are submitted to the National Radiology Data Registry (NRDR) Dose Index Registry (DIR) with the [employer] (ACR). RADIATION OPTIMIZATION: All CT scans at this facility use at least one of these dose optimization te chniques: automated exposure control; mA and/or kV adjustment per patient size (includes targeted exa ms where dose is matched to clinical indication); or iterative reconstruction.
[2022-11-11 16:08] LABS: Abs Immature Grans 0.04 10^3/uL (0.0-0.06); Absolute Eosinophil Count 0.01 10^3/uL (0.0-0.7); Absolute Lymphocyte Count 1.15 10^3/uL (1.2-3.4); Absolute Monocyte Count 1.08 10^3/uL (0.1-0.8); Basophils % 0.4; Eosinophils % 0.1; HCT 37.5 % (36.0-46.0); HGB 12.6 g/dL (11.2-15.7); Immature Grans % 0.4; Lymphocytes % 10.1; MCH 29.8 pg (27.0-33.0); MCHC 33.6 % (32.0-36.0); MCV 89 fL (80-95); MPV 10.8 fL (8.0-11.0); Monocytes % 9.5; Neutrophils % 79.5; Platelet Count 220 10^3/uL (130-400); RBC 4.23 10^6/uL (3.93-5.22); RDW 12.6 % (11.7-14.6); WBC 11.38 10^3/uL (4.4-10.8)
[2022-11-11] MEDS: Ondansetron 4 MG/2 ML VIAL IVP (16:09)
[2022-11-11] MEDS: Normal Saline 1,000 ML 1000 ML IV (16:09)
[2022-11-11] MEDS: Ketorolac 15 MG/ML VIAL IVP (16:09)
[2022-11-11 16:10] LABS: Absolute Basophil Count 0.05 10^3/uL (0.0-0.2); Absolute Neutrophil Count 9.05 10^3/uL (1.2-6.7)
[2022-11-11 16:22] LABS: ALT 20 U/L (14-59); AST 10 U/L (15-37); Albumin 3.7 g/dL (3.4-5.0); Alkaline Phosphatase 66 U/L (46-116); Anion Gap 11.7 mmol/L (3-11); BUN 14 mg/dL (7-18); Bilirubin, Total 0.5 mg/dL (0.2-1.0); CO2 25.3 mmol/L (21.0-32.0); CREATININE 0.9 mg/dL (0.55-1.02); Calcium 9.1 mg/dL (8.5-10.1); Chloride 103 mmol/L (98-107); Estimated GFR 78.86 (mL/min/1.73m2); Glucose 200 mg/dL (74-106); Lipase 33 U/L (16-77); Magnesium 1.5 mg/dL (1.8-2.4); Potassium 3.3 mmol/L (3.5-5.1); Sodium 140 mmol/L (136-145); Total Protein 7.7 g/dL (6.4-8.2)
[2022-11-11 16:22] LABS: Bilirubin Negative (Negative); Blood Trace-intact (Negative); Clarity Clear (Clear); Glucose 100 mg/dL (Negative); Ketones Negative (Negative); Leukocyte Esterase Small (Negative); Nitrite Positive (Negative); Specific Gravity >= 1.030 (1.005-1.025); Urobilinogen 0.2 mg/dL (Up to 0.2); pH 5.5 (5-8)
[2022-11-11 16:35] LABS: Bacteria Moderate HPF (Negative); C & S Indicated? Yes; Casts Negative LPF (Negative); Crystals Negative HPF (Negative); Epithelial Cells Rare HPF (Negative); Mucus Trace (Negative); Other Cells Rare Transitional (Negative); RBC 0-2 HPF (0-2)
[2022-11-11] MEDS: MAGNESIUM SULFATE 1 GM/100 ML BAG IVPB (16:35)
[2022-11-11] MEDS: Omnipaque 350 MG/ML 500 ML BTL-Imaging package IJ (16:59)
[2022-11-11] MEDS: Normal Saline - Diluent 50 ML VIAL IJ (16:59)
--- NOTE | 2022-11-11 17:22 | DI.VRAD_ITS ---
PROCEDURE INFORMATION: Exam: CT Abdomen And Pelvis With Contrast Exam date and time: 11/11/2022 4:59 PM Age: 47 years old Clinical indication: Nausea and vomiting TECHNIQUE: Imaging protocol: Computed tomography of the abdomen and pelvis with contrast. Contrast material: OMNIPAQUE 350; Contrast volume: 100 ml; Contrast route: INTRAVENOUS (IV); COMPARISON: CR XR HIP LT COMPLETE AP PELVIS 12/09/2019 11:46 AM FINDINGS: Liver: Normal. No mass. Gallbladder and bile ducts: Normal. No calcified stones. No ductal dilation. Pancreas: Normal. No ductal dilation. Spleen: Normal. No splenomegaly. Adrenal glands: Normal. No mass. Kidneys and ureters: There is an area of decreased attenuation in the left renal mid pole with some soft tissue stranding in the adjacent perinephric tissues. No definite drainable collection is identified. Stomach and bowel: Unremarkable. No obstruction. No mucosal thickening. Appendix: No evidence of appendicitis. Intraperitoneal space: Unremarkable. No free air. No significant fluid collection. Vasculature: Severe atherosclerotic change present in the vasculature. Lymph nodes: Unremarkable. No enlarged lymph nodes. Urinary bladder: The bladder is not well distended. Reproductive: Unremarkable as visualized. Bones/joints: Unremarkable. No acute fracture. Soft tissues: Unremarkable. Other findings: Moderate fecal retention pattern. IMPRESSION: Suspect left upper pole pyelonephritis. Lobar nephronia is likely. No evidence for abscess at this time. Dictated and Authenticated by: Leanne Harden MD. Ordering:DICK Kelly MD
[2022-11-11] MEDS: cefTRIAXone 1 GM/50 ML BAG IVPB (17:46)
[2022-11-11] MEDS: Cephalexin 500 MG CAP PO (18:21)
[2022-11-11] MEDS: Cephalexin 500 MG CAP, 2 CAPS/BTL PO (18:21)
[2022-11-11] MEDS: Ondansetron O.D.T. 4 MG TABEF, 3 TABS/BTL PO (18:21)
== END 2022-11-11 18:28 | disposition home or self-care (01) ==
PROVIDERS: Emergency Provider Registered Nurse Emergency; PCP Family Medicine
DX: N12 Tubulo-interstitial nephritis, not specified as acute or chronic (principal); D72.829 Elevated white blood cell count, unspecified; E87.6 Hypokalemia; E83.42 Hypomagnesemia; I10 Essential (primary) hypertension; E03.9 Hypothyroidism, unspecified; J45.909 Unspecified asthma, uncomplicated
CPT/HCPCS: 80053; 83690; 87077; 96361; 96365; 96367; 96375; 99285; 74177; 81003; 81015; 83735; 85025; 87086; 87186; 99284; J0696; J1885; J2405; J3475

== ENCOUNTER 2022-12-25 02:10 | Outpatient (CLI) | payer BC, SELFPAY ==
--- NOTE | 2022-12-25 | DI.MAMMO_ITS ---
Exam(s) MAMMO SCREENING EXAM: MAMMO SCREENING CLINICAL HISTORY: SCREENING, Z12.31. TECHNIQUE: Bilateral full field digital CC and MLO mammographic images were obtained with 3D tomosyn thesis and utilizing computer aided detection (CAD). COMPARISON: Prior mammograms were reviewed. FINDINGS: There has been no significant change in the appearance and distribution of the fibroglandular tissue. Benign-appearing nodules both breasts again noted which are probably benign intramammary lymph nodes. There are no new spiculated masses nor malignant appearing microcalcification groups. Benign punctate microcalcifications again noted bilaterally. There is no significant architectural distortion nor skin thickening-retraction. IMPRESSION: No radiographic evidence of malignancy. Stable benign-appearing findings. BI-RADS Category 2 - Benign Findings Breast Density - Category B - Scattered areas of fibroglandular density Breast density Category C or D implies that the patient has dense breast tissue. Dense breast tissue can make it harder to find cancer on a mammogram. Dense breast tissue is also associated with an incr eased risk of breast cancer. This information about the result of the mammogram report was provided to the patient to raise their awareness. Use this report when you speak with the patient about their risks for breast cancer, which includes their family history. At that time, you may recommend additional screening tests (Ultrasoun d or MRI) as these tests may add significant information. A negative radiographic report should not delay biopsy if a dominant or clinically suspicious mass is present. Up to ten percent of cancers are not identified on mammography. A negative report may reinforce clinical impression. Adenosis and dense breasts may obscure an underlying neoplasm. False positive reports average 6 to 10%. Patient will receive a letter notifying them of these results.
== END 2022-12-25 02:30 ==
LOC: DI 02:10
PROVIDERS: PCP Family Medicine; Visit Provider Family Medicine
DX: Z12.31 Encounter for screening mammogram for malignant neoplasm of breast (principal)
CPT/HCPCS: 77063; 77067

== ENCOUNTER 2023-04-16 11:51 | Outpatient (REF) | payer BC, SELFPAY ==
--- NOTE | 2023-04-16 11:00 | PAPFT_PTH ---
PATIENT: Dede Morse LOC: [facility] U#:[id number] AGE/SX: 48/F ROOM: RE04/16/[address]: Lauren Donato : 1975 BED: DIS: 04/16/2023 SPEC #: [id number] RECD: 04/16/23 18:20 STATUS: MIKAEL REQ #: [id number] DEBORAH: 04/16/23 11:[address]: Unknown,Unknown DEPT: [facility] Cytology RECD BY: Josephine Kingston ENTERED: 04/16/23 18:20 SP TYPE: PAPFT OTHR DR: Lauren Donato Tissues: 1 - CX/ENDOCX FOR PAP SMEARS Procedures: PAP THIN PREP/UVM Screening HPV DNA PROBE Comments: [id number]
== END 2023-04-16 11:52 | disposition home or self-care (01) ==
LOC: NCHCN 11:51
PROVIDERS: PCP Family Medicine; Visit Provider Family Medicine
DX: Z12.4 Encounter for screening for malignant neoplasm of cervix (principal); Z11.51 Encounter for screening for human papillomavirus (HPV); Z01.419 Encounter for gynecological examination (general) (routine) without abnormal findings
CPT/HCPCS: 88142; 87624

== ENCOUNTER → 2023-05-23 00:35 | Outpatient (CLI) | payer BC, SELFPAY ==
--- NOTE | 2023-05-23 08:30 | DI.NM_ITS ---
Exam(s) NM HEPATOBILIARY CCK GRP EXAM: NM HEPATOBILIARY CCK GRP CLINICAL HISTORY: NAUSEA,VOMITING,R11.2,RUQ ABD PAIN,R10.11. TECHNIQUE: Injected dose: 5 mCi Tc-99 mebrofenin Initial dynamic images: According to protocol. Post-Gallbladder fillin mcg CCK was administered according to protocol. Addition images: According to protocol. COMPARISON: NM Post CCK from 11/16/[address] ABDOMEN PELVIS W from 11/11/2022 US US ABD PELV TRANSVAG NON-OB from 04/30/2023 FINDINGS: Normal hepatic transit time. Prompt excretion into the small bowel. The liver bile ducts gallbladder small-bowel were visualized at the appropriate time interval. Gallbladder ejection fraction was 28 percent. (Normal is greater than 40 percent). IMPRESSION: 1. Decreased gallbladder ejection fraction. This can be seen with gallbladder dyskinesia. SN guidelines: Gallbladder visualization should be present by 3 hours. Delayed [id number] ledesma sit beyond 60 min raises the suspicion for partial common bile duct (CBD) obstruction.
[2023-05-23] MEDS: Sincalide 5 MCG VIAL 1 MCG IJ (11:24)
== END ==
PROVIDERS: PCP Family Medicine; Visit Provider Family Medicine
DX: K82.8 Other specified diseases of gallbladder (principal)
CPT/HCPCS: 78227; J2805

== ENCOUNTER 2023-07-13 08:46 | Outpatient (CLI) | payer BC, SELFPAY ==
--- NOTE | 2023-07-13 08:45 | RT.EKG_ITS ---
APPROVED REPORT Exam: Resting ECG Reason for Exam: Saw Patient Location: O HR:62 bpm ECG Measurements Heart Rate 62 AXIS MT 146 P 66 QRSd 110 QRS 50 QT 419 T 67 QTc 426 Conclusion Sinus rhythm...normal P axis, V-rate 50- 99 Multiple ventricular premature complexes...V complexes w/ short R-R intervls Probable left atrial enlargement...P >50mS, <-0.10mV V1 Low voltage, precordial leads...precordial leads <1.0mV I have reviewed and interpreted ECG and agree with software generated interpretation.
== END 2023-07-13 08:47 | disposition home or self-care (01) ==
PROVIDERS: PCP Family Medicine; Visit Provider Surgery
DX: E03.9 Hypothyroidism, unspecified (principal); E11.9 Type 2 diabetes mellitus without complications; E78.5 Hyperlipidemia, unspecified; F17.210 Nicotine dependence, cigarettes, uncomplicated; I10 Essential (primary) hypertension; I49.8 Other specified cardiac arrhythmias; J45.20 Mild intermittent asthma, uncomplicated; J45.909 Unspecified asthma, uncomplicated; R10.11 Right upper quadrant pain
CPT/HCPCS: 93005; 93010

== ENCOUNTER 2023-08-01 19:13 | Emergency (ER) | payer BC, SELFPAY ==
[2023-08-01 19:18] VITALS: BP 149/66; PULSE 76; RESP 20; TEMP 36.1; O2SAT 99
--- NOTE | 2023-08-01 19:31 | ED.GENADUL_ITS ---
HPI General Date/Time Provider Initiated Documentation: 08/01/23 19:28 . Limitations to Documentation: no limitations . Information obtained by: patient . HPI Narrative: 48-year-old female with past medical history of diabetes presents for evaluation of nasal redness. Reports that she has had tenderness and redness to the tip of her nose for 1 week. She denies any trauma. Reports tenderness. She thought it was a pimple so she tried popping it with a needle. She went to urgent care on Sunday and was started on antibiotics. She denies any fever. Reports that symptoms are not worsening, but they are just not improving and she is having significant tenderness. Related Data Home Medications Medication Instructions Recorded Confirmed atorvastatin 10 mg tablet (Lipitor) 10 mg PO DAILY 04/03/14 08/01/23 glipizide 10 mg tablet, extended 10 mg PO DAILY 04/03/14 08/01/23 release 24 hr lisinopril 5 mg tablet 5 mg PO DAILY 04/03/14 08/01/23 albuterol sulfate 90 mcg/actuation 2 puff inhalation PRN PRN 03/27/16 08/01/23 aerosol inhaler (ProAir HFA) levothyroxine 50 mcg tablet 50 mcg PO DAILY 01/01/20 08/01/23 (Synthroid) ibuprofen 800 mg tablet 800 mg PO TID PRN 02/10/20 08/01/23 meclizine 25 mg tablet 25 mg PO DAILY PRN 05/11/22 08/01/23 metformin 1,000 mg tablet,extended 1,000 mg PO BID 05/11/22 08/01/23 release 24hr (osmotic) omeprazole 40 mg capsule,delayed 1 cap PO DAILY 06/01/22 08/01/23 release semaglutide 0.25 mg or 0.5 mg (2 0.5 mg subcut QWEEK 11/11/22 08/01/23 mg/1.5 mL) subcutaneous pen injector (Ozempic) sulfamethoxazole 800 1 tab PO BID 08/01/23 08/01/23 mg-trimethoprim 160 mg tablet Allergies Allergy/AdvReac Type Severity Reaction Status Date / Time No Known Allergies Allergy Unverified 08/01/23 19:22 General Stated Complaint: Cellulitis SERGE: 4 PFSH All Active Problems (Updated 08/01/23 @ 20:03 by Carlo Lau MD) Abscess of nasal septum (Acute) Biliary dyskinesia (Acute) Smoker (Acute) Adnexal mass (Acute) Abdominal pain, right upper quadrant (Acute) Diabetes (Chronic) History of IBS (Acute) Screening for colon cancer (Acute) Medical History Bigeminy Asthma Sacroiliac joint pain GERD (gastroesophageal reflux disease) Headache Menorrhagia Pelvic pain Abdominal bloating Cubital tunnel syndrome on left Left carpal tunnel syndrome Bilateral carpal tunnel syndrome Intermittent asthma Sciatica of right side Hyperlipidemia Microalbuminuria Cystocele Knee pain, right Globus sensation Shoulder joint pain Hypothyroidism Hypertension Diarrhea Arm pain, left Tear of medial meniscus of right knee Internal derangement of right knee Surgical History History of colonoscopy History of section Family History Sister Cancer lymphoma Father Hypertension Mother Thyroid disease Social History Smoking/Tobacco Use Status: Current every day Tobacco Type: e-cigarettes Smokeless tobacco user: other Smoking risk assessment performed?: Yes Alcohol Intake: never Drug use: Never Substance use type: does not use Household members: spouse, children and other Details: Yovana Rivera D-Ebony, D-Paisley Housing: house Number of Children: 3 current occupation: warehouse stock clerk, bike sales. Pets and animals: Yes Pets and animals: cat(s) and dog(s) Current gender identity: female What is your relationship status?: Panel score (0-1 are the most socially isolated patients): 1 What type of physical activity do you participate in: walking Duration: other Details: walks all day at three jobs and after work Frequency: 5-6 times per week Seatbelt use: always Do you feel safe at home: Yes Do you feel safe in your relationship?: Yes Female Reproductive History Menstrual Duration of menses: 6-7 days control method: permanent sterilization History History 3 Para 3 Hx # Term Pregnancies 3 Multiple births Hx # Pregnancies Ectopic pregnancies AB induced Hx Number of Living Children 3 AB spontaneous Exam Narrative Exam Narrative: Review of Systems: All systems reviewed & are unremarkable except as noted in HPI and below Well-developed, no acute distress NACT Nose not significantly edematous there is some redness to the tip, very tender, the septum is slightly swollen and very tender, there appears to be a focus of infection inside the right nare PERRL, normal conjunctiva RRR Unlabored respiratory effort Nondistended abdomen Extremities w/o deformity, no cyanosis, no edema No rashes or lesions. no focal neurologic deficits Appropriate mood and affect Course Vital Signs Vital signs: Vital Signs Temperature 36.1 C L 08/01/23 19:18 Pulse 76 08/01/23 19:18 Respiratory Rate 20 08/01/23 19:18 Blood Pressure 149/66 H 08/01/23 19:18 Pulse Oximetry 99 08/01/23 19:18 Temperature 36.1 C L 08/01/23 19:18 Temperature Source Skin 08/01/23 19:18 Pulse 76 08/01/23 19:18 Respiratory Rate 20 08/01/23 19:18 Respiratory Effort Normal 08/01/23 19:21 Blood Pressure 149/66 H 08/01/23 19:18 Blood Pressure Position Sitting 08/01/23 19:18 Pulse Oximetry 99 08/01/23 19:18 Oxygen Delivery Method Room Air 08/01/23 19:18 Oxygen Flow Rate 0 08/01/23 19:18 Procedures Abscess I/D Site: Face (right nare) Side (if applicable): Right Local Anesthetic: Other Anesthetic (LET) Technique: Needle Aspiration and Incised with #11 Blade Amount of fluid expressed (mL): 0.5 Medical Decision Making Emergent evaluation of nasal infection. There is some redness at the tip of the nose, I believe that this is likely secondary to the patient poking this area herself with a needle. She has no surrounding nasal swelling or facial redness to make me think that she has significant facial cellulitis. She has a small area of abscess on the inner right nare. Topical let was applied for analgesia. This area did have some spontaneous drainage, I used an 18-gauge needle and a 11 blade scalpel to open the area a little bit more to promote drainage. Provided with mupirocin ointment to use. Given her diabetes I have requested close follow-up. I provided strict return precautions. Recommend continued the Bactrim, I do not feel that this is a antibiotic failure. Quality:SDOH Health Related Social Needs: No Data to Display Discharge Plan Disposition Patient Disposition: Home Condition: Stable Discharge Details Clinical Impression: Abscess of nasal septum Primary Care Provider: Lauren Donato ED Provider: Carlo Lau Home Meds and New Rx's Prescriptions: No Action atorvastatin [Lipitor] 10 MG tablet 10 mg PO DAILY glipizide 10 MG tablet extended release 24hr 10 mg PO DAILY lisinopril 5 MG tablet 5 mg PO DAILY levothyroxine [Synthroid] 50 mcg tablet 50 mcg PO DAILY ibuprofen 800 mg tablet 800 mg PO TID PRN meclizine 25 mg tablet 25 mg PO DAILY PRN metformin 1,000 mg tablet extended release 24hr 1,000 mg PO BID albuterol sulfate [ProAir HFA] 8.5 GM HFA aerosol inhaler 2 puff Inhalation PRN PRN Patient Comments: 03/27/16 2 puffs by mouth prior ro exercise as needed[place] [facility] [place] 0.25 mg or 0.5 mg(2 mg/1.5 mL) pen injector 0.5 mg SUBCUT QWEEK Patient Comments: INJECT 0.5MG UNDER THE SKIN ONCE A WEEK sulfamethoxazole-trimethoprim 800-160 mg tablet 1 tab PO BID Patient Comments: TAKE ONE TABLET BY MOUTH TWICE A DAY FOR 7 DAYS omeprazole 40 mg capsule,delayed release(DR/EC) 1 cap PO DAILY Patient Comments: TAKE ONE CAPSULE BY MOUTH EVERY DAY Discharge Instructions Instructions: Abscess (ED) Additional Instructions: Continue the Bactrim Use the mupirocin ointment provided 3 times per day, apply to the area inside of your right nare with a Q-tip Several times a day apply pressure and warm compress to the inside of your right nose to promote continued drainage Return to the emergency department if you develop worsening symptoms, fever or worsening redness Please contact your primary care provider to schedule a follow-up appointment on Sunday for reevaluation of your wound
[2023-08-01] MEDS: Mupirocin 2% Oint. 22 GM TUBE TP (20:17)
[2023-08-01] MEDS: Lidocaine/Epinephri/Tetracaine Topical Gel 3 ML TP (20:17)
== END 2023-08-01 20:20 | disposition home or self-care (01) ==
PROVIDERS: Emergency Provider Emergency Medicine; PCP Family Medicine
DX: J34.0 Abscess, furuncle and carbuncle of nose (principal); I10 Essential (primary) hypertension; E78.5 Hyperlipidemia, unspecified; E11.9 Type 2 diabetes mellitus without complications; F17.290 Nicotine dependence, other tobacco product, uncomplicated; Z79.85 Long-term (current) use of injectable non-insulin antidiabetic drugs; Z79.84 Long term (current) use of oral hypoglycemic drugs
CPT/HCPCS: 10060; 99283

== ENCOUNTER 2023-09-07 06:12 | Day surgery (SDC) | payer BC, SELFPAY ==
--- NOTE | 2023-09-06 16:15 | HPE_ITS ---
Assessment and Plan Assessment and plan (1) Biliary dyskinesia: Status: Acute Assessment and plan: We reviewed the plan for left scopic cholecystectomy today as well as the risks and the benefits of the procedure. I think she has a good understanding of this, and we can proceed as planned. History of Present Illness History of Present Illness Chief Complaint: Abdominal pain Narrative: Dede is 48 years old, and she has been suffering longstanding midepigastric and right upper quadrant abdominal pain. She underwent HIDA scan that demonstrated a low gallbladder ejection fraction confirming a diagnosis of biliary dyskinesia. PFSH All Active Problems Biliary dyskinesia (Acute) Smoker (Acute) Adnexal mass (Acute) Abdominal pain, right upper quadrant (Acute) Screening for colon cancer (Acute) History of IBS (Acute) Diabetes (Chronic) Medical History Bigeminy Asthma Pt. states no longer has it Sacroiliac joint pain GERD (gastroesophageal reflux disease) Headache Menorrhagia Pelvic pain Abdominal bloating Cubital tunnel syndrome on left Left carpal tunnel syndrome Bilateral carpal tunnel syndrome Intermittent asthma Sciatica of right side Hyperlipidemia Microalbuminuria Cystocele Knee pain, right Globus sensation Shoulder joint pain Hypothyroidism Hypertension Diarrhea Arm pain, left Tear of medial meniscus of right knee Internal derangement of right knee Surgical History History of colonoscopy History of section Family History Sister Cancer lymphoma Father Hypertension Mother Thyroid disease Social History Smoking/Tobacco Use Status: Current every day Tobacco Type: e-cigarettes Smokeless tobacco user: other Smoking risk assessment performed?: Yes Alcohol Intake: never Drug use: Never Substance use type: does not use Household members: spouse, children and other Details: Yovana Rivera D-Ebony, D-Paisley Housing: house Number of Children: 3 current occupation: warehouse inventory clerk, bike sales. Pets and animals: Yes Pets and animals: cat(s) and dog(s) Current gender identity: female What is your relationship status?: Panel score (0-1 are the most socially isolated patients): 1 What type of physical activity do you participate in: walking Duration: other Details: walks all day at three jobs and after work Frequency: 5-6 times per week Seatbelt use: always Do you feel safe at home: Yes Do you feel safe in your relationship?: Yes Female Reproductive History Menstrual Duration of menses: 6-7 days control method: permanent sterilization History History 3 Para 3 Hx # Term Pregnancies 3 Multiple births Hx # Pregnancies Ectopic pregnancies AB induced Hx Number of Living Children 3 AB spontaneous Meds Allergies and Home Medications Allergies Allergy/AdvReac Type Severity Reaction Status Date / Time No Known Allergies Allergy Verified 09/07/23 06:45 Home Medications Medication Instructions Recorded Confirmed Type atorvastatin 10 mg tablet (Lipitor) 10 mg PO DAILY 04/03/14 09/07/23 History glipizide 10 mg tablet, extended 10 mg PO DAILY 04/03/14 09/07/23 History release 24 hr lisinopril 5 mg tablet 5 mg PO DAILY 04/03/14 09/07/23 History albuterol sulfate 90 mcg/actuation 2 puff inhalation PRN PRN 03/27/16 09/07/23 History aerosol inhaler (ProAir HFA) levothyroxine 50 mcg tablet 50 mcg PO DAILY 01/01/20 09/07/23 History (Synthroid) ibuprofen 800 mg tablet 800 mg PO TID PRN 02/10/20 09/07/23 History meclizine 25 mg tablet 25 mg PO DAILY PRN 05/11/22 09/07/23 History metformin 1,000 mg tablet,extended 1,000 mg PO BID 05/11/22 09/07/23 History release 24hr (osmotic) omeprazole 40 mg capsule,delayed 1 cap PO DAILY 06/01/22 09/07/23 History release semaglutide 0.25 mg or 0.5 mg (2 0.5 mg subcut QWEEK 11/11/22 09/06/23 History mg/1.5 mL) subcutaneous pen injector (Ozempic) Exam Const General: cooperative, healthy appearing and not in acute distress Neck Neck: normal visual inspection, no lymphadenopathy and supple Resp Effort & Inspection: normal respiratory effort Auscultation: clear to auscultation bilaterally Cardio Jugular venous pressure: no JVD Rate: regular rate Rhythm: regular rhythm Heart Sounds: S1 normal and S2 normal GI Inspection: normal to inspection Palpation: soft, no guarding, no hernias and nontender Percussion: normal to percussion Auscultation: normal bowel sounds Neuro General: patient alert, patient awake and patient oriented x3 Psych Appearance: grossly normal
--- NOTE | 2023-09-06 16:23 | W.PM.DSUDISC ---
Date of service: 09/07/23 Time of Service: 09:07 Discharge Plan Disposition Patient Disposition: Home Condition: Good Discharge Details Reason For Visit: Cholecystectomy Attending Provider: Jose Romero Primary Care Provider: Lauren Donato Home Meds and New Rx's Prescriptions: Continued atorvastatin [Lipitor] 10 MG tablet 10 mg PO DAILY glipizide 10 MG tablet extended release 24hr 10 mg PO DAILY lisinopril 5 MG tablet 5 mg PO DAILY levothyroxine [Synthroid] 50 mcg tablet 50 mcg PO DAILY ibuprofen 800 mg tablet 800 mg PO TID PRN meclizine 25 mg tablet 25 mg PO DAILY PRN metformin 1,000 mg tablet extended release 24hr 1,000 mg PO BID albuterol sulfate [ProAir HFA] 8.5 GM HFA aerosol inhaler 2 puff Inhalation PRN PRN Patient Comments: 03/27/16 2 puffs by mouth prior ro exercise as needed. C Ozempic 0.25 mg or 0.5 mg(2 mg/1.5 mL) pen injector 0.5 mg SUBCUT QWEEK Patient Comments: INJECT 0.5MG UNDER THE SKIN ONCE A WEEK omeprazole 40 mg capsule,delayed release(DR/EC) 1 cap PO DAILY Patient Comments: TAKE ONE CAPSULE BY MOUTH EVERY DAY Discharge Instructions Instructions: Laparoscopic Cholecystectomy (GEN) Additional Instructions: Crystal, we were able to remove your gallbladder today just like we talked about without any issues. Hopefully this will relieve some of your symptoms and get you feeling better. Expect to have some discomfort over the surgical sites, and may be a little bit in your right shoulder in the days to come. That is very typical. Like we talked about beforehand, you should use [id number] Tylenol and ibuprofen [id number] for about 48 hours, then switch over to using medicines as needed. You may also notice some bruising around the incisions, which is very common. Do not be alarmed by that if it occurs. I would like to know if any of the skin around it starts to turn bright red or draining fluid that is malodorous or thick. Hopefully, you will do well, and I look forward to seeing you in the office in routine follow-up. 1. Resume all of your medications. 2. Heating pads and ice packs as needed for pain 3. Okay to use [id number] Tylenol and ibuprofen. You should alternate these every 6 hours for the first 48 hours. Then shift down to as needed dosing. Use tramadol for more severe pain if Tylenol and ibuprofen are insufficient 4. Leave bandage in place for 24 hours, then remove. 5. Shower with warm soapy water. Pat dry. Use a bandaid if needed to protect your clothing. 6. No soaking or tub baths until I see you in the office. 7. No heavy lifting until I see you in the office. 8. Call the office (or go directly to the emergency room after hours) if you notice any of the following: Develop chills (warm to touch), or if you have a thermometer and your temperature is above 101 Difficulty breathing or difficultly swallowing Persistent vomiting Any bleeding ? exceeding one tablespoon 9. Call your physician if the site where your intravenous was started becomes red, swollen, painful, and warm to touch. Activity:: Activity as Tolerated Remove Dressings/Wound Care:: 24 hours Shower/Bathe:: 24 hours Diet:: As Tolerated Discharge Orders Discharge Orders: Discharge Order (Routine); Ordered 09/06/23 Ordered By: Jose Romero DS: Diagnosis Discharge Diagnosis (1) Biliary dyskinesia: Status: Acute Asessment and Plan: Outpatient office follow-up
--- NOTE | 2023-09-06 16:26 | ROE_ITS ---
Date of service: 09/07/23 Time of Service: 09:20 Operative Note Operative Note DATE OF PROCEDURE: 09/07/23 PRE-OP DIAGNOSIS: Biliary dyskinesia POST-OP DIAGNOSIS: same PROCEDURE: Laparoscopic cholecystectomy SURGEON: Jose Romero HOUSING MANAGEMENT REPRESENTATIVE: Vinita Lawrence Refer to Anesthesia Record ESTIMATED BLOOD LOSS: 25 PATHOLOGY: other (Gallbladder) COMPLICATIONS: None Patient was transported to: PACU Patient's condition: stable Indications: Dede is a 48-year-old woman with symptomatic biliary dyskinesia. Procedure Description: After satisfactory induction of general anesthesia, I prepped and draped the abdomen in usual fashion. Next, I began with a periumbilical incision. I dissected down to the fascia and elevated it with Nia clamps. I incised it sharply. Next, I passed a 12 mm operating port in the umbilical site. I secured it to the fascia with 0 Vicryl stitches. I then insufflated the peritoneal cavity. Next I inserted a 5 mm 30 degree scope and examined the underlying viscera. There was no evidence of injury created upon entry. I then placed the patient in some reverse Trendelenburg and left side down positioning. Then, with the assistance of the laparoscope, I used local anesthetic to anesthetize the midepigastric and 2 right upper quadrant port sites. Under the vision of the laparoscope, I passed 3 more 5 mm ports. I then grasped the gallbladder fundus and elevated cephalad. I began by dissecting the gallbladder infundibulum. I worked in a lateral to medial fashion with the assistance of indocyanine green for visualization. Once I skeletonized the cystic duct and cystic artery, with a satisfactory critical view of safety, I doubly clipped and divided them. I then used electrocautery to dissect the gallbladder off the gallbladder fossa. I passed the gallbladder into an Endo Catch bag and removed it by way of the umbilical site. I examined the surgical field. It was hemostatic. I then removed the 5 mm ports under the vision of the laparoscope. Finally, I removed the umbilical port site and closed the fascia with Vicryl stitches. Sites were irrigated, and the skin was closed with subcuticular stitches. Bandages were applied, patient was awakened from anesthesia, and transferred to the recovery unit.
[2023-09-07] VITALS (13 sets, daily range): BP systolic 126–169; BP diastolic 63–96; PULSE 53–70; RESP 15–21; TEMP 36.4–36.7; O2SAT 94–100; BMI 24.3
--- NOTE | 2023-09-07 06:28 | W.ANESPRE ---
General Info Date of Service Date Performed: 09/07/23 Height: 5 ft 4 in Weight: 64.41 kg Body Mass Index (BMI): 24.3 Surgical Procedure: Operation Date: 09/07/23 07:40 Proposed Procedure Side Surgeon p Cholecystectomy Laparoscopic Possible Open Jose Romero MD Meds Allergies and Home Medications Allergies Allergy/AdvReac Type Severity Reaction Status Date / Time No Known Allergies Allergy Verified 09/07/23 06:45 Home Medication Medication Instructions Recorded atorvastatin 10 mg tablet (Lipitor) 10 mg PO DAILY 04/03/14 glipizide 10 mg tablet, extended 10 mg PO DAILY 04/03/14 release 24 hr lisinopril 5 mg tablet 5 mg PO DAILY 04/03/14 albuterol sulfate 90 mcg/actuation 2 puff inhalation PRN PRN 03/27/16 aerosol inhaler (ProAir HFA) levothyroxine 50 mcg tablet 50 mcg PO DAILY 01/01/20 (Synthroid) ibuprofen 800 mg tablet 800 mg PO TID PRN 02/10/20 meclizine 25 mg tablet 25 mg PO DAILY PRN 05/11/22 metformin 1,000 mg tablet,extended 1,000 mg PO BID 05/11/22 release 24hr (osmotic) omeprazole 40 mg capsule,delayed 1 cap PO DAILY 06/01/22 release semaglutide 0.25 mg or 0.5 mg (2 0.5 mg subcut QWEEK 11/11/22 mg/1.5 mL) subcutaneous pen injector (Ozempic) Current Visit Medications: Current Medications Generic Name Dose Route Start Last Admin Trade Name Freq PRN Reason Stop Dose Admin Acetaminophen 1,000 mg 09/07/23 06:00 Acetaminophen 500 Mg Tab PO 09/07/23 16:00 PREOP LEXIS Gabapentin 600 mg 09/07/23 06:00 Gabapentin 300 Mg Cap PO 09/07/23 16:00 PREOP LEXIS Hydromorphone HCl 2 mg 09/06/23 16:27 Hydromorphone 2 Mg Tab PO 10/06/23 16:26 Q4H PRN PRN Pain Ringer's Solution 1,000 mls @ 80 mls/hr 09/07/23 06:00 IV 10/06/23 23:59 INFUSION LEXIS Cefazolin Sodium/Dextrose 2 gm in 50 mls @ 100 mls/hr 09/07/23 06:00 Ancef Duplex IVPB 09/17/23 16:00 PREOP LEXIS IV Miscellaneous Supplies 1 each 09/07/23 06:00 Iv Access IV 10/06/23 23:59 DIRECTED LEXIS Indocyanine Green 5 mg 09/07/23 06:30 Indocyanine Green 25 Mg Vial IVP 10/07/23 06:29 DIRECTED LEXIS Sodium Chloride 0 ml 09/07/23 06:00 Normal Saline Flush 10 Ml Syr IV 10/06/23 23:59 PRN PRN Sodium Chloride 0 ml 09/07/23 06:00 Normal Saline 10 Ml Vial IJ 10/06/23 23:59 DIRECTED PRN Sterile Water 0 ml 09/07/23 06:00 Water,Injection,Sterile 10 Ml Vial IJ 10/06/23 23:59 DIRECTED PRN Tramadol HCl 50 mg 09/06/23 16:27 Tramadol 50 Mg Tab PO 10/06/23 16:26 Q6H PRN PRN Pain PFSH Active Problems Active Problems: Problem Status Onset Code Biliary dyskinesia K82.8 Smoker F17.200 Adnexal mass N94.89 Abdominal pain, right upper quadrant R10.11 Screening for colon cancer Z12.11 History of IBS Z87.19 Diabetes E11.9 Medical History Medical History Bigeminy Asthma Pt. states no longer has it Sacroiliac joint pain GERD (gastroesophageal reflux disease) Headache Menorrhagia Pelvic pain Abdominal bloating Cubital tunnel syndrome on left Left carpal tunnel syndrome Bilateral carpal tunnel syndrome Intermittent asthma Sciatica of right side Hyperlipidemia Microalbuminuria Cystocele Knee pain, right Globus sensation Shoulder joint pain Hypothyroidism Hypertension Diarrhea Arm pain, left Tear of medial meniscus of right knee Internal derangement of right knee Medical History Comments:: Brother had allergic reaction to propofol; but had it since without issue. Surgical History Surgical History History of colonoscopy History of section Tobacco Smoking/Tobacco Use Status: Current every day Tobacco Type: e-cigarettes Smokeless tobacco user: other Alcohol Alcohol Intake: never Substance Use Substance use: Never Substance use type: does not use Prental History History 3 Para 3 Hx # Term Pregnancies 3 Multiple births Hx # Pregnancies Ectopic pregnancies AB induced Hx Number of Living Children 3 AB spontaneous Vital Signs and Lab Results Lab Results Blood Type / Crossmatch: No Data to Display Complete Blood Count: No Data to Display Complete Metabolic Panel: No Data to Display Liver Function Panel: No Data to Display Coagulation Panel: No Data to Display Cardiac Panel: No Data to Display Arterial Blood Gas: No Data to Display Venous Blood Gas: No Data to Display Pancreas Panel: No Data to Display Thyroid Panel: No Data to Display Infectious Disease: No Data to Display Blood Cultures: No Data to Display Toxicology Panel: No Data to Display Panel: No Data to Display Imaging and Studies Imaging and Studies Study information below may be from another EMR and interpreted by another provider. Please see original notes in EMR for more complete details. EKG Summary: DATE/TIME OF SERVICE: 07/13/23 0855 Sinus rhythm...normal P axis, V-rate 50- 99 Multiple ventricular premature complexes...V complexes w/ short R-R intervls Probable left atrial enlargement...P >50mS, <-0.10mV V1 Low voltage, precordial leads...precordial leads <1.0mV I have reviewed and interpreted ECG and agree with software generated interpretation. Pulmonary Function Summary: DATE OF ADMIT: 07/26/15 : 1975 DATE OF SERVICE: July 26, 2015. PRIMARY CARE PROVIDER: Irasema Mullins N.P. Spirometry shows no evidence of obstructive airways disease but there is significant bronchodilator response. Lung volumes show no evidence of restriction. Diffusion capacity normal. Airways resistance normal. Overall normal pulmonary function study. However, there is significant bronchodilator response which may just represent an effort-related improvement but it could also signal early inflammatory airway disease. Therefore clinical correlation recommended. If the diagnosis of asthma or cough-variant asthma is in question, proceeding with Methacholine challenge testing may prove to be useful. Anesthesia Assessment and Plan Anesthesia History Personal History: No History of Anesthesia Complications Family History: Other (pt reports brother has had issues with anesthesia but was unable to elucidate further but denied any issues with brother related to high temperatures or prolonged intubation ) Exercise Tolerance Exercise Tolerance: Metabolic Equivalents>4 Pertinent Negatives Pertinent Negatives: No Symptoms of GERD, No Major Cardiovascular Symptoms or Complaints, No Major Pulmonary Symptoms or Complaints and No History of CVA/TIA Cardiac & Pulmonary Exam Cardiac Exam: Normal S1/S2 Heart Sounds Pulmonary Exam: Clear Bilateral Breath Sounds Implantable Cardiac Device Does patient have a Pacemaker or an ICD?: No Airway Exam Known Difficult Airway: No Mallampati Class: 2 Mouth Opening: Normal (> 3cm) Thyromental Distance: Greater than 3 cm Neck Range of Motion: Full ROM Neck Circumference: Normal Teeth Condition: Normal Dentition ASA Classification ASA Score: ASA 2 Emergency Case?: No NPO Status NPO Status: NPO Clears >2 hours, Solids >8 hours Status Status: Not Relevant due to Medical History (no menstruation for one year per pt ) Anesthesia Plan Resuscitation Status: Full Code Anesthesia Technique: General Anesthesia Airway Planned: Endotracheal Tube Monitors Used: Standard Monitors and SedLine
[2023-09-07] MEDS: Acetaminophen 500 MG TAB 1000 MG PO ×2 (06:43→06:44)
[2023-09-07] MEDS: Gabapentin 300 MG CAP 600 MG PO (06:44)
[2023-09-07] MEDS: Lactated Ringers 1,000 ML 80 ML IV (06:44)
[2023-09-07] MEDS: Indocyanine green 25 MG VIAL 5 MG IVP (06:44)
[2023-09-07] MEDS: ceFAZolin 2 GM/50 ML BAG IVPB (07:59)
[2023-09-07] MEDS: Bupivacaine 0.25% Pres-Free 30 ML VIAL (08:44)
--- NOTE | 2023-09-07 08:50 | GB_PTH ---
PATIENT: Dede Morse LOC: [facility] U#:[id number] AGE/SX: 48/F ROOM: RE09/07/[address]: Jose Romero MD : 1975 BED: DIS: 09/07/2023 SPEC #: [id number] RECD: 09/07/23 12:53 STATUS: MIKAEL REQ #: [id number] DEBORAH: 09/07/23 08:[address]: Jose Romero DEPT: Surgical Specimen RECD BY: Josephine Kingston ENTERED: 09/07/23 12:54 SP TYPE: GB OTHR DR: Lauren Donato Tissues: 1 - GALLBLADDER Procedures: GROSS AND MICRO LEVEL 3 Comments: [id number]
[2023-09-07] MEDS: fentaNYL 100 MCG/2 ML VIAL IVP ×2 (09:39→10:24)
[2023-09-07] MEDS: Ketorolac 15 MG/ML VIAL IVP (10:48)
[2023-09-07] MEDS: traMADol 50 MG TAB PO (11:40)
--- NOTE | 2023-09-07 13:43 | W.ANESPOSTOP ---
Postoperative Evaluation Date, Time and Location Date Performed: 09/07/23 Time Performed: 11:05 Patient Location: Day [facility] Unit Vital Signs Most Recent Imported Vital Signs: Most Recent Vital Signs Temp Pulse Resp BP Pulse Ox 36.7 C 64 16 138/76 96 09/07/23 11:27 09/07/23 11:27 09/07/23 11:27 09/07/23 11:27 09/07/23 11:27 Pain Score Most Recent Pain Score: Most Recent Pain Score Pain Level 6 09/07/23 10:59 Assessment Mental Status: Awake (Alert & Oriented to Patient Baseline) Airway and Respiratory Function: Patent airway with normal (patient baseline) respiratory exam Cardiovascular Function: Hemodynamically Stable Hydration Status: Adequately Hydrated Nausea & Vomiting: No Nausea or Vomiting Pain: Pain is tolerable per patient Peripheral Nerve Block: Patient did not receive a nerve block
== END 2023-09-07 12:10 | disposition home or self-care (01) ==
LOC: SUR 06:12
PROVIDERS: PCP Family Medicine; Visit Provider Surgery
PROC: 0FT44ZZ Resection of Gallbladder, Percutaneous Endoscopic Approach (ICD-10-PCS; CPT 47562; principal; 2023-09-07 07:30)
DX: K82.8 Other specified diseases of gallbladder (principal); F17.210 Nicotine dependence, cigarettes, uncomplicated; E11.9 Type 2 diabetes mellitus without complications; Z79.85 Long-term (current) use of injectable non-insulin antidiabetic drugs; Z79.84 Long term (current) use of oral hypoglycemic drugs
CPT/HCPCS: 47562; 88304; J0665; J0690; J1100; J1885; J2250; J2371; J2405; J2704; J3010

== ENCOUNTER 2023-11-26 15:21 | Outpatient (REF) | payer BC, SELFPAY ==
[2023-11-26 18:35] LABS: HCT 39.7 % (36.0-46.0); HGB 13.1 g/dL (11.2-15.7); MCH 29.6 pg (27.0-33.0); MCV 90 fL (80-95); MPV 11.5 fL (8.0-11.0); Platelet Count 276 10^3/uL (130-400); RBC 4.43 10^6/uL (3.93-5.22); RDW 12.9 % (11.7-14.6); RDW-SD 42.5 fL; WBC 5.63 10^3/uL (4.4-10.8)
[2023-11-26 18:54] LABS: ALT 28 U/L (14-59); AST 15 U/L (15-37); Albumin 3.8 g/dL (3.4-5.0); Alkaline Phosphatase 79 U/L (46-116); Anion Gap 8.5 mmol/L (3-11); BUN 10 mg/dL (7-18); Bilirubin, Total 0.3 mg/dL (0.2-1.0); CO2 29.5 mmol/L (21.0-32.0); CREATININE 0.7 mg/dL (0.55-1.02); Calcium 8.8 mg/dL (8.5-10.1); Chloride 105 mmol/L (98-107); Estimated GFR 105.95 (mL/min/1.73m2); Glucose 179 mg/dL (74-106); Sodium 143 mmol/L (136-145); TSH (W/Ref FT4) 0.46 uIU/mL (0.36-3.74); Total Protein 6.9 g/dL (6.4-8.2)
[2023-11-26 20:07] LABS: COMMENT (LAB VIEW ONLY) 29.27 mg/dL; Microalb ug/mg Crea 51.9 ug/mg Cr
== END 2023-11-26 15:22 | disposition home or self-care (01) ==
LOC: NCHCN 15:21
PROVIDERS: PCP Family Medicine; Visit Provider Family Medicine
DX: R53.83 Other fatigue (principal); E11.9 Type 2 diabetes mellitus without complications
CPT/HCPCS: 80053; 85027; 82043; 82570; 84443

== ENCOUNTER 2024-02-07 12:35 | Outpatient (REF) | payer BC, SELFPAY ==
[2024-02-09 11:49] LABS: Campylobacter PCR Negative (Negative); Salmonella PCR Negative (Negative); Shiga Toxin PCR Negative (Negative); Shigella/Enteroinvasive Ecoli Negative (Negative)
[2024-02-13 15:40] LABS: Calprotectin <50.0 mcg/g
== END 2024-02-07 12:36 | disposition home or self-care (01) ==
LOC: NCHCN 12:35
PROVIDERS: PCP Family Medicine; Visit Provider Family Medicine
DX: R19.7 Diarrhea, unspecified (principal)
CPT/HCPCS: 87329; 87493; 87505; 83993

== ENCOUNTER 2024-02-18 03:33 | Outpatient (CLI) | payer BC, SELFPAY ==
[2024-02-18 12:59] LABS: ALT 76 U/L (14-59); AST 41 U/L (15-37); Albumin 3.7 g/dL (3.4-5.0); Alkaline Phosphatase 123 U/L (46-116); Bilirubin, Direct 0.1 mg/dL (0.0-0.2); Total Protein 7.1 g/dL (6.4-8.2)
== END 2024-02-18 03:34 | disposition home or self-care (01) ==
LOC: LOS 03:33
PROVIDERS: PCP Family Medicine; Visit Provider Family Medicine
DX: R94.5 Abnormal results of liver function studies (principal)
CPT/HCPCS: 36415; 80076

== ENCOUNTER 2024-05-28 10:12 | Outpatient (REF) | payer BC, SELFPAY ==
[2024-05-28 15:05] LABS: ALT 80 U/L (14-59); AST 26 U/L (15-37); Albumin 3.9 g/dL (3.4-5.0); Alkaline Phosphatase 99 U/L (46-116); Bilirubin, Direct 0.1 mg/dL (0.0-0.2); Bilirubin, Total 0.36 mg/dL (0.2-1.0); Total Protein 7.5 g/dL (6.4-8.2)
[2024-05-28 15:09] LABS: Hemoglobin A1C 6.6 % (<5.7)
[2024-05-28 15:30] LABS: Iron 89 ug/dL (50-170); Total Iron Binding Capacity 336 ug/dL (250-450)
[2024-05-28 15:35] LABS: COMMENT (LAB VIEW ONLY) 28.95 mg/dL; Microalb ug/mg Crea 54.2 ug/mg Cr
[2024-05-28 15:39] LABS: Ferritin 139 ng/mL (8-252)
[2024-05-29 09:33] LABS: Hepatitis C Ab w Rflx HCV PCR Negative (Negative)
[2024-05-29 09:55] LABS: HBs Antibody, Quant <3.1 mIU/mL (See Note); Hepatitis B Surface Ab Negative (See Note)
[2024-05-29 10:06] LABS: Hepatitis B Surface Ag Negative (Negative)
[2024-05-29 10:36] LABS: Hep B Core Antibody Negative (Negative)
== END 2024-05-28 10:13 | disposition home or self-care (01) ==
LOC: NCHCN 10:12
PROVIDERS: PCP Family Medicine; Visit Provider Family Medicine
DX: E11.9 Type 2 diabetes mellitus without complications (principal); R94.5 Abnormal results of liver function studies
CPT/HCPCS: 80076; 86704; 86706; 86803; 87340; 82043; 82570; 82728; 83036; 83540; 83550

== ENCOUNTER 2024-09-15 21:18 | Outpatient (REF) | payer BC, SELFPAY ==
[2024-09-15 21:43] LABS: ALT 23 U/L (14-59); AST 15 U/L (15-37); Albumin 3.8 g/dL (3.4-5.0); Alkaline Phosphatase 98 U/L (46-116); Anion Gap 8.5 mmol/L (3-11); BUN 13 mg/dL (7-18); Bilirubin, Total 0.24 mg/dL (0.2-1.0); CO2 29.5 mmol/L (21.0-32.0); CREATININE 0.8 mg/dL (0.55-1.02); Calcium 9.3 mg/dL (8.5-10.1); Chloride 105 mmol/L (98-107); Estimated GFR 89.71 (mL/min/1.73m2); Glucose 216 mg/dL (74-106); Potassium 4.2 mmol/L (3.5-5.1); Sodium 143 mmol/L (136-145); TSH (W/Ref FT4) 0.89 uIU/mL (0.36-3.74); Total Protein 7.1 g/dL (6.4-8.2)
== END 2024-09-15 21:19 | disposition home or self-care (01) ==
LOC: NCHCN 21:18
PROVIDERS: PCP Family Medicine; Visit Provider Family Medicine
DX: E03.9 Hypothyroidism, unspecified (principal)
CPT/HCPCS: 80053; 84443

== ENCOUNTER 2024-10-27 12:20 | Emergency (ER) | payer BC, SELFPAY ==
--- NOTE | 2024-10-27 12:30 | RT.EKG_ITS ---
APPROVED REPORT Exam: Resting ECG Reason for Exam: Syncope Patient Location: E HR:64 bpm ECG Measurements Heart Rate 64 AXIS SC 154 P 63 QRSd 92 QRS 48 QT 414 T 108 QTc 428 Conclusion Sinus rhythm...normal P axis, V-rate 60- 99 Multiple ventricular premature complexes...V complexes w/ short R-R intervls Low voltage, precordial leads...precordial leads <1.0mV
[2024-10-27 12:35] VITALS: BP 129/71; PULSE 75; RESP 20; TEMP 36.6; O2SAT 96
[2024-10-27 13:17] LABS: BE (Venous) 2 mmol/L (-2-3); HCO3 (Venous) 28 mmol/L (23-28); pCO2 (Venous) 51 mmHg (41-51); pH (Venous) 7.35 (7.31-7.41); pO2 (Venous) 22 mmHg
[2024-10-27 13:18] LABS: Abs Immature Grans 0.02 10^3/uL (0.0-0.06); Absolute Basophil Count 0.09 10^3/uL (0.0-0.2); Absolute Eosinophil Count 0.09 10^3/uL (0.0-0.7); Absolute Lymphocyte Count 1.34 10^3/uL (1.2-3.4); Absolute Monocyte Count 0.33 10^3/uL (0.1-0.8); Absolute Neutrophil Count 7.65 10^3/uL (1.2-6.7); Basophils % 0.9 %; Eosinophils % 0.9 %; HCT 43.9 % (36.0-46.0); HGB 14.5 g/dL (11.2-15.7); Immature Grans % 0.2 %; Lymphocytes % 14.1 %; MCV 91 fL (80-95); MPV 10.6 fL (8.0-11.0); Monocytes % 3.5 %; Neutrophils % 80.4 %; Platelet Count 242 10^3/uL (130-400); RBC 4.84 10^6/uL (3.93-5.22); WBC 9.52 10^3/uL (4.4-10.8)
[2024-10-27 13:22] VITALS: RESP 12
[2024-10-27] MEDS: Ondansetron 4 MG/2 ML VIAL IVP (13:28)
[2024-10-27] MEDS: Normal Saline 1,000 ML 1000 ML IV (13:28)
[2024-10-27] MEDS: Normal Saline Flush 10 ML SYR IVP ×2 (13:29→14:16)
[2024-10-27 13:38] LABS: BE (Venous) 0 mmol/L (-2-3); HCO3 (Venous) 26 mmol/L (23-28); O2 Sat (Venous) 85 %; TCO2 (Venous) 23 mmol/L (24-29); pCO2 (Venous) 44 mmHg (41-51); pO2 (Venous) 50 mmHg
[2024-10-27 13:44] LABS: pH (Venous) 7.37 (7.31-7.41)
[2024-10-27 13:46] LABS: Bilirubin Negative (Negative); Blood Negative (Negative); Clarity Clear (Clear); Glucose Negative (Negative); Ketones Negative (Negative); Leukocyte Esterase Negative (Negative); Nitrite Negative (Negative); Specific Gravity 1.025 (1.005-1.025); Urobilinogen 0.2 mg/dL (Up to 0.2); pH 5.5 (5-8)
[2024-10-27 13:49] LABS: ALT 58 U/L (14-59); AST 15 U/L (15-37); Albumin 4.3 g/dL (3.4-5.0); Alkaline Phosphatase 102 U/L (46-116); Anion Gap 9.5 mmol/L (3-11); BUN 12 mg/dL (7-18); Bilirubin, Total 0.5 mg/dL (0.2-1.0); CO2 28.5 mmol/L (21.0-32.0); CREATININE 0.7 mg/dL (0.55-1.02); Calcium 9.8 mg/dL (8.5-10.1); Chloride 104 mmol/L (98-107); Glucose 155 mg/dL (74-106); Magnesium 1.6 mg/dL (1.8-2.4); Potassium 4.5 mmol/L (3.5-5.1); Sodium 142 mmol/L (136-145)
[2024-10-27 13:51] LABS: TSH (W/Ref FT4) 0.72 uIU/mL (0.36-3.74)
[2024-10-27 13:53] LABS: Bacteria Negative HPF (Negative); C & S Indicated? No; Casts 0-2 Hyaline LPF (Negative); Crystals Negative HPF (Negative); Epithelial Cells Rare HPF (Negative); Mucus Negative (Negative); RBC Negative HPF (0-2); WBC Negative HPF (0-5)
[2024-10-27 13:58] LABS: COVID-19 PCR Negative (Negative); Influenza A PCR Negative (Negative); Influenza B PCR Negative (Negative); RSV PCR Negative (Negative)
[2024-10-27 14:01] LABS: Source Nasopharynx
[2024-10-27] MEDS: Prochlorperazine 10 MG/2 ML VIAL 5 MG IVP (14:15)
[2024-10-27 15:13] VITALS: BP 92/61; PULSE 64; RESP 12; O2SAT 98
--- NOTE | 2024-10-28 09:56 | ED.GENADUL_ITS ---
Discharge Plan Disposition Patient Disposition: Home Condition: Stable Discharge Details Clinical Impression: Dizziness Primary Care Provider: Lauren Donato ED Provider: Josephine Suresh Home Meds and New Rx's Prescriptions: New prochlorperazine maleate [Compazine] 10 mg tablet 10 mg PO Q6H PRNQty: 10 0RF Continued gabapentin 600 mg tablet 600 mg PO TID atorvastatin [Lipitor] 10 MG tablet 10 mg PO DAILY glipizide 10 MG tablet extended release 24hr 10 mg PO DAILY lisinopril 5 MG tablet 5 mg PO DAILY levothyroxine [Synthroid] 50 mcg tablet 50 mcg PO DAILY ibuprofen 800 mg tablet 800 mg PO TID PRN meclizine 25 mg tablet 25 mg PO DAILY PRN metformin 1,000 mg tablet extended release 24hr 1,000 mg PO BID albuterol sulfate [ProAir HFA] 8.5 GM HFA aerosol inhaler 2 puff Inhalation PRN PRN Patient Comments: 03/27/16 2 puffs by mouth prior ro exercise as needed. [facility] Ozempic 0.25 mg or 0.5 mg(2 mg/1.5 mL) pen injector 0.5 mg SUBCUT QWEEK Patient Comments: INJECT 0.5MG UNDER THE SKIN ONCE A WEEK omeprazole 40 mg capsule,delayed release(DR/EC) 1 cap PO DAILY Patient Comments: TAKE ONE CAPSULE BY MOUTH EVERY DAY Discharge Instructions Instructions: Vertigo (a type of dizziness) Additional Instructions: take compazine as needed for nausea and vomiting increased fluids you may try nancy maneuver at home rest return with worseing STOKES, fever, or should any new concerns arise Discharge Data Discharge Date/Time-TO BE ENTERED AT DEPARTURE: 10/27/24 15:14 HPI General Date/Time Provider Initiated Documentation: 10/27/24 12:52 . HPI Narrative: 49-year-old female with hyperlipidemia, diabetes, hypothyroidism, Ozempic use, and vertigo, presents with intermittent dizziness throughout the week. She reports a drunk sensation with quick head movements, accompanied by room spinning, nausea, and vomiting, reminiscent of past vertigo episodes. Diarrhea occurred 2 days ago. No chest pain, shortness of breath, or bloody stools. Related Data Home Medications ?Medication ?Instructions ?Recorded ?Confirmed atorvastatin 10 mg tablet (Lipitor) 10 mg PO DAILY 04/03/14 10/27/24 glipizide 10 mg tablet, extended 10 mg PO DAILY 04/03/14 10/27/24 release 24 hr lisinopril 5 mg tablet 5 mg PO DAILY 04/03/14 10/27/24 albuterol sulfate 90 mcg/actuation 2 puff inhalation PRN PRN 03/27/16 10/27/24 aerosol inhaler (ProAir HFA) levothyroxine 50 mcg tablet 50 mcg PO DAILY 01/01/20 10/27/24 (Synthroid) ibuprofen 800 mg tablet 800 mg PO TID PRN 02/10/20 10/27/24 meclizine 25 mg tablet 25 mg PO DAILY PRN 05/11/22 10/27/24 metformin 1,000 mg tablet,extended 1,000 mg PO BID 05/11/22 10/27/24 release 24hr (osmotic) omeprazole 40 mg capsule,delayed 1 cap PO DAILY 06/01/22 10/27/24 release semaglutide 0.25 mg or 0.5 mg (2 0.5 mg subcut QWEEK 11/11/22 10/27/24 mg/1.5 mL) subcutaneous pen injector ([employer]) gabapentin 600 mg tablet 600 mg PO TID 09/19/23 10/27/24 prochlorperazine maleate 10 mg 10 mg PO Q6H PRN #10 tabs 10/27/24 tablet (Compazine) Previous Rx's ?Medication ?Instructions ?Recorded prochlorperazine maleate 10 mg 10 mg PO Q6H PRN #10 tabs 10/27/24 tablet (Compazine) Allergies Allergy/AdvReac Type Severity Reaction Status Date / Time No Known Allergies Allergy Verified 10/27/24 12:39 General Stated Complaint: Dizzy/Sync SERGE: 3 Exam Narrative Exam Narrative: General Appearance: Alert and oriented, in no acute distress. Vital signs: Within normal limits. HEENT: Positive left beating nystagmus, pupils equal, round, reactive to light and accommodation. Respiratory: Within normal limits. Cardiovascular: Cardiac rate rhythm regular Gastrointestinal: No abdominal tenderness Genitourinary: Lymphatic: Back, Musculoskeletal: Extremities: No peripheral edema Skin: Warm and dry, no rash. Neurological: Cranial nerves II-XII intact. Negative Romberg, pronator drift, and [id number]. Ambulatory with steady gait. Other observations: Course Vital Signs Vital signs: Vital Signs Temperature 36.6 C 10/27/24 12:35 Pulse 75 10/27/24 12:35 Respiratory Rate 20 10/27/24 12:35 Blood Pressure 129/71 10/27/24 12:35 Pulse Oximetry 96 10/27/24 12:35 Temperature 36.6 C 10/27/24 12:35 Pulse 64 10/27/24 15:13 Respiratory Rate 12 10/27/24 15:13 Respiratory Effort Normal, Non-Labored 10/27/24 13:22 Respiratory Depth Normal 10/27/24 13:22 Respiratory Pattern Normal 10/27/24 13:22 Blood Pressure 92/61 L 10/27/24 15:13 Blood Pressure Position Sitting 10/27/24 12:35 Pulse Oximetry 98 10/27/24 15:13 Oxygen Delivery Method Room Air 10/27/24 12:35 Oxygen Flow Rate 0 10/27/24 12:35 Lab/Test Results Lab/Test Results: Laboratory Tests Range/Units 10/27/24 10/27/24 10/27/24 13:10 13:17 13:30 WBC (4.4-10.8) 10^3/uL 9.52 RBC (3.93-5.22) 10^6/uL 4.84 Hgb (11.2-15.7) g/dL 14.5 Hct (36.0-46.0) % 43.9 MCV (80-95) fL 91 MCH (27.0-33.0) pg 30.0 MCHC (32.0-36.0) % 33.0 RDW (11.7-14.6) % 13.0 Plt Count (130-400) 10^3/uL 242 MPV (8.0-11.0) fL 10.6 Immature Gran % % 0.2 Neutrophils % % 80.4 Lymphocytes % % 14.1 Monocytes % % 3.5 Eosinophils % % 0.9 Basophils % % 0.9 Nucleated RBC % (0.0-0.3) % 0.0 Absolute Neutrophils (1.2-6.7) 10^3/uL 7.65 H Absolute Lymphocytes (1.2-3.4) 10^3/uL 1.34 Absolute Monocytes (0.1-0.8) 10^3/uL 0.33 Absolute Eosinophils (0.0-0.7) 10^3/uL 0.09 Absolute Basophils (0.0-0.2) 10^3/uL 0.09 VBG pH (7.31-7.41) 7.35 7.37 VBG pCO2 (41-51) mmHg 51 44 VBG pO2 mmHg 22 50 VBG HCO3 (23-28) mmol/L 28 26 VBG Total CO2 (24-29) mmol/L 23 L VBG O2 Saturation % 85 VBG Base Excess (-2-3) mmol/L 2 0 Sodium (136-145) mmol/L 142 Potassium (3.5-5.1) mmol/L 4.5 Chloride (98-107) mmol/L 104 Carbon Dioxide (21.0-32.0) mmol/L 28.5 Anion Gap (3-11) mmol/L 9.5 BUN (7-18) mg/dL 12 Creatinine (0.55-1.02) mg/dL 0.7 Est GFR (CKD-EPI 2020) (mL/min/1.73m2) 105.30 Glucose (74-106) mg/dL 155 H Calcium (8.5-10.1) mg/dL 9.8 Magnesium (1.8-2.4) mg/dL 1.6 L Total Bilirubin (0.2-1.0) mg/dL 0.5 AST (15-37) U/L 15 ALT (14-59) U/L 58 Alkaline Phosphatase (46-116) U/L 102 Total Protein (6.4-8.2) g/dL 8.0 Albumin (3.4-5.0) g/dL 4.3 TSH (0.36-3.74) uIU/mL 0.72 Urine Color (Yellow) Yellow Urine Clarity (Clear) Clear Urine pH (5-8) 5.5 Ur Specific [place] (1.005-1.025) 1.025 Urine Protein (Neg-Trace) mg/dL 30 H Urine Ketones (Negative) mg/dL Negative Urine Blood (Negative) Negative Urine Nitrite (Negative) Negative Urine Bilirubin (Negative) Negative Urine Urobilinogen (Up to 0.2) mg/dL 0.2 Ur Leukocyte Esterase (Negative) Negative Urine RBC (0-2) HPF Negative Urine WBC (0-5) HPF Negative Ur Epithelial Cells (Negative) HPF Rare Urine Crystals (Negative) HPF Negative Urine Bacteria (Negative) HPF Negative Urine Casts (Negative) LPF 0-2 Hyaline Urine Mucus (Negative) Negative Ur Culture Indicated? No Urine Glucose (Negative) mg/dL Negative COVID-19 Source Nasopharynx SARS-CoV-2 (PCR) (Negative) Negative Influenza Type A (PCR) (Negative) Negative Influenza Type B (PCR) (Negative) Negative RSV (PCR) (Negative) Negative Range/Units 10/27/24 13:41 WBC (4.4-10.8) 10^3/uL RBC (3.93-5.22) 10^6/uL Hgb (11.2-15.7) g/dL Hct (36.0-46.0) % MCV (80-95) fL MCH (27.0-33.0) pg MCHC (32.0-36.0) % RDW (11.7-14.6) % Plt Count (130-400) 10^3/uL MPV (8.0-11.0) fL Immature Gran % % Neutrophils % % Lymphocytes % % Monocytes % % Eosinophils % % Basophils % % Nucleated RBC % (0.0-0.3) % Absolute Neutrophils (1.2-6.7) 10^3/uL Absolute Lymphocytes (1.2-3.4) 10^3/uL Absolute Monocytes (0.1-0.8) 10^3/uL Absolute Eosinophils (0.0-0.7) 10^3/uL Absolute Basophils (0.0-0.2) 10^3/uL VBG pH (7.31-7.41) Cancelled VBG pCO2 (41-51) mmHg Cancelled VBG pO2 mmHg Cancelled VBG HCO3 (23-28) mmol/L Cancelled VBG Total CO2 (24-29) mmol/L Cancelled VBG O2 Saturation % Cancelled VBG Base Excess (-2-3) mmol/L Cancelled Sodium (136-145) mmol/L Potassium (3.5-5.1) mmol/L Chloride (98-107) mmol/L Carbon Dioxide (21.0-32.0) mmol/L Anion Gap (3-11) mmol/L BUN (7-18) mg/dL Creatinine (0.55-1.02) mg/dL Est GFR (CKD-EPI 2020) (mL/min/1.73m2) Glucose (74-106) mg/dL Calcium (8.5-10.1) mg/dL Magnesium (1.8-2.4) mg/dL Total Bilirubin (0.2-1.0) mg/dL AST (15-37) U/L ALT (14-59) U/L Alkaline Phosphatase (46-116) U/L Total Protein (6.4-8.2) g/dL Albumin (3.4-5.0) g/dL TSH (0.36-3.74) uIU/mL Urine Color (Yellow) Urine Clarity (Clear) Urine pH (5-8) Ur Specific [place] (1.005-1.025) Urine Protein (Neg-Trace) mg/dL Urine Ketones (Negative) mg/dL Urine Blood (Negative) Urine Nitrite (Negative) Urine Bilirubin (Negative) Urine Urobilinogen (Up to 0.2) mg/dL Ur Leukocyte Esterase (Negative) Urine RBC (0-2) HPF Urine WBC (0-5) HPF Ur Epithelial Cells (Negative) HPF Urine Crystals (Negative) HPF Urine Bacteria (Negative) HPF Urine Casts (Negative) LPF Urine Mucus (Negative) Ur Culture Indicated? Urine Glucose (Negative) mg/dL COVID-19 Source SARS-CoV-2 (PCR) (Negative) Influenza Type A (PCR) (Negative) Influenza Type B (PCR) (Negative) RSV (PCR) (Negative) POC- Test(urine) Negative Medical Decision Making Mild hypomagnesemia. Remainder of labs within normal limits Initial Assessment: 49-year-old female with history of hyperlipidemia, diabetes, hypothyroidism, Ozempic use, and vertigo presents with intermittent dizziness throughout the week, feeling drunk with quick head movements, room spinning, nausea, vomiting, similar to past vertigo episodes. Diarrhea 2 days ago. No chest pain, shortness of breath, or bloody stools. Mild hypomagnesemia. ED Course: - Diagnostic labs show no acute abnormality aside from mild hypomagnesemia. - Cranial nerves II-XII intact. - Negative Romberg. - Negative pronator drift. - Negative [id number]. - Ambulatory with steady gait. - Positive left beating nystagmus, pupils equal, round, reactive to light and accommodation. - Nancy maneuver performed twice with good effect, resolving dizziness. - Patient feels improvement and tolerates oral intake. - Supplement mild hypomagnesemia. - No indication for CT imaging. - Reviewed return precautions, patient understands. - Recheck in 24 hours encouraged. Final Assessment: Patient's dizziness resolved after Nancy maneuver, mild hypomagnesemia supplemented, no indication for CT imaging, patient tolerates oral intake, and understands return precautions. Clinical Impression: - Vertigo Disposition: - Discharge home - Recheck in 24 hours encouraged Patient Education: Return precautions reviewed and patient expressed understanding. Quality:SDOH Health Related Social Needs: No Data to Display PFSH All Active Problems (Updated 10/27/24 @ 14:59 by CHATO Calvo) Dizziness (Acute) Biliary dyskinesia (Acute) Smoker (Acute) Adnexal mass (Acute) Abdominal pain, right upper quadrant (Acute) Screening for colon cancer (Acute) History of IBS (Acute) Diabetes (Chronic) Medical History Bigeminy Asthma Pt. states no longer has it Sacroiliac joint pain GERD (gastroesophageal reflux disease) Headache Menorrhagia Pelvic pain Abdominal bloating Cubital tunnel syndrome on left Left carpal tunnel syndrome Bilateral carpal tunnel syndrome Intermittent asthma Sciatica of right side Hyperlipidemia Microalbuminuria Cystocele Knee pain, right Globus sensation Shoulder joint pain Hypothyroidism Hypertension Diarrhea Arm pain, left Tear of medial meniscus of right knee Internal derangement of right knee Surgical History History of cholecystectomy (~08/2023) biopsies History of colonoscopy History of section Family History Sister Cancer lymphoma Father Hypertension Mother Thyroid disease Social History Smoking/Tobacco Use Status: Current every day Tobacco Type: e-cigarettes Smokeless tobacco user: other Smoking risk assessment performed?: Yes Alcohol Intake: never Drug use: Never Substance use type: does not use Household members: spouse, children and other Details: Yovana Rivera, Mary Beth Soler Housing: house Number of Children: 3 current occupation: general house worker, bike sales. Pets and animals: Yes Pets and animals: cat(s) and dog(s) Current gender identity: female What is your relationship status?: Panel score (0-1 are the most socially isolated patients): 1 What type of physical activity do you participate in: walking Duration: other Details: walks all day at three jobs and after work Frequency: 5-6 times per week Seatbelt use: always Do you feel safe at home: Yes Do you feel safe in your relationship?: Yes Female Reproductive History Menstrual Duration of menses: 6-7 days control method: permanent sterilization History History 3 Para 3 Hx # Term Pregnancies 3 Multiple births Hx # Pregnancies Ectopic pregnancies AB induced Hx Number of Living Children 3 AB spontaneous
== END 2024-10-27 15:14 | disposition home or self-care (01) ==
PROVIDERS: Emergency Provider Physician Assistant; PCP Family Medicine
DX: R55 Syncope and collapse (principal); R42 Dizziness and giddiness; I10 Essential (primary) hypertension; E78.5 Hyperlipidemia, unspecified; E03.9 Hypothyroidism, unspecified; E11.9 Type 2 diabetes mellitus without complications; F17.290 Nicotine dependence, other tobacco product, uncomplicated; Z79.84 Long term (current) use of oral hypoglycemic drugs; Z79.85 Long-term (current) use of injectable non-insulin antidiabetic drugs
CPT/HCPCS: 80053; 82805; 87637; 93005; 96361; 96374; 96375; 99284; 81003; 81015; 83735; 84443; 85025; 93010; J0780; J2405

== ENCOUNTER 2025-05-25 13:44 | Outpatient (REF) | payer BC, SELFPAY ==
[2025-05-25 21:57] LABS: Microalb ug/mg Crea 46.4 ug/mg Cr
== END 2025-05-25 13:45 | disposition home or self-care (01) ==
LOC: NCHCN 13:44
PROVIDERS: PCP Family Medicine; Visit Provider Family Medicine
DX: E11.9 Type 2 diabetes mellitus without complications (principal)
CPT/HCPCS: 82043; 82570